=== PATIENT | male | born 1965 | race African-American/Black ===

== ENCOUNTER 2018-03-30 13:45 | Inpatient (IN) | payer OTHER ==
[2018-03-30 14:20] VITALS: BMI 30.5
[2018-03-30] MEDS ORDERED: hydrOXYzine PAMOATE 50 MG CAPSULE (FP) PO PRN (16:06)
[2018-03-30] MEDS ORDERED: guaiFENesin/D-METHORPHAN HB 10 ML UNIT-DOSE CUPS PO PRN (16:06)
[2018-03-30] MEDS ORDERED: IBUPROFEN 400 MG TABLET (FP) PO PRN (16:06)
[2018-03-30] MEDS ORDERED: MAGNESIUM CITRATE 300 ML BOTTLE PO PRN (16:06)
[2018-03-30] MEDS ORDERED: MENTHOL/PHENOL 1 EACH UD MM PRN (16:06)
[2018-03-30] MEDS ORDERED: MAG HYDROX/AL HYDROX/SIMETH 30 ML UNIT-DOSE CUP PO PRN (16:06)
[2018-03-30] MEDS ORDERED: LOPERAMIDE HCL 2 MG CAPSULE PO PRN (16:06)
[2018-03-30] MEDS ORDERED: NICOTINE POLACRILEX 2 MG GUM BC PRN (16:06)
[2018-03-30] MEDS ORDERED: MAGNESIUM HYDROX 2400MG/30ML ORAL SUSPENSION 30 ML CUP PO PRN (16:06)
[2018-03-30] MEDS ORDERED: ACETAMINOPHEN 325 MG TABLET (FP) PO PRN (16:06)
[2018-03-30] MEDS ORDERED: P-EPHED 60MG/TRIPROLIDI 2.5MG TABLET PO PRN (16:06)
[2018-03-30] MEDS ORDERED: chlordiazePOXIDE HCL 25 MG CAPSULE PO PRN (16:12)
--- NOTE | 2018-03-30 16:25 | HP ---
CIWA Score Nausea/Vomitin Muscle Tremors: None Anxiety: 3 Agitation: 3 Paroxysmal Sweats: No Perspiration Orientation: 0-Oriented Tacttile Disturbances: 1-Very Mild Itch/Numbness Auditory Disturbances: 0-None Visual Disturbances: 0-None Headache: 3-Moderate CIWA-Ar Total Score: 13 - Admission Criteria OASAS Guidelines: Admission for Medically Managed Detox: Requires at least one of the followin. CIWA greater than 12 2. Seizures within the past 24 hours 3. Delirium tremens within the past 24 hours 4. Hallucinations within the past 24 hours 5. Acute intervention needed for co occurring medical disorder 6. Acute intervention needed for co occurring psychiatric disorder 7. Severe withdrawal that cannot be handled at a lower level of care (continued vomiting, continued diarrhea, abnormal vital signs) requiring intravenous medication and/or fluids 8. Admission ROS [facility] Chief Complaint: PATIENT PRESENTS FOR ETOH WITHDRAWAL SX AND COCAINE/PCP DEPENDENCE. Allergies/Adverse Reactions: Allergies Allergy/AdvReac Type Severity Reaction Status Date / Time No Known Allergies Allergy Verified 03/30/18 16:00 History of Present Illness: THIS IS PATIENTS FIRST ADMISSION TO [facility] IN LAST YEAR FOR DETOX FROM ETOH. PATIENT STATES HE STARTED DRINKING AND SMOKING CRACK IN 1984. PATIENT DRINKS 2 40 OUNCES OF BEER AND 3 PINTS OF VODKA DIALY, SMOKES 100 DOLLARS OF COCAINE AND SMOKES PCP ONCE A MONTH. LAST TIME PATIENT USED SUBSTANCES WAS LAST NIGHT. + THC USE. PATIENT DENIES HX OF SEIZURES AND FALLS. + HX OF BINGE DRINKING, BLACKOUTS AND HAS EYE FITTER UP TO STEADY NERVES. PMH INCLUDES HIV+, HTN, HLD, BIPOLAR DISORDER AND DM. PATIENT IS NONCOMPLIANT WITH HIV MEDICATIONS HE HASN'T TAKEN MEDICATION FOR OVER ONE WEEK. ALL OTHER MEDICATIONS VERIFIED AT [facility] AND LAST FILLED 03/25/18; TRIUMEQ MEDICATION REQUIRES PA AND HAS NOT BEEN FILLED. PATIENT DENIES SI/HI AND SUICIDE ATTEMPTS. Exam Limitations: No Limitations - Ebola screening Have you traveled outside of the country in the last 21 days: No (N) Have you had contact with anyone from an Ebola affected area: No Have you been sick,other than usual withdrawal symptoms: No Do you have a fever: No - Review of Systems Constitutional: Changes in sleep EENT: reports: No Symptoms Reported Respiratory: reports: No Symptoms reported Cardiac: reports: No Symptoms Reported GI: reports: Diarrhea, Nausea, Poor Fluid Intake, Abdominal cramping : reports: Frequency (DEPENDS ON ETOH INTAKE) Musculoskeletal: reports: No Symptoms Reported Integumentary: reports: No Symptoms Reported Neuro: reports: Headache, Numbness, Tingling Endocrine: reports: No Symptoms Reported Hematology: reports: No Symptoms Reported Psychiatric: reports: Orientated x3, Anxious, Depressed Patient History - Patient Medical History Hx Anemia: No Hx Asthma: No Hx Chronic Obstructive Pulmonary Disease (COPD): No Hx Cancer: No Hx Cardiac Disorders: No Hx Congestive Heart Failure: No Hx Hypertension: Yes Hx Hypercholesterolemia: Yes Hx Pacemaker: No HX Cerebrovascular Accident: No Hx Seizures: No Hx Dementia: No Hx Diabetes: Yes Hx Gastrointestinal Disorders: No Hx Liver Disease: No Hx Genitourinary Disorders: No Hx Sexually Transmitted Disorders: No Hx Renal Disease (ESRD): No Hx Thyroid Disease: No Hx Human Immunodeficiency Virus (HIV): Yes (DIAGNOSED IN 2000) Hx Hepatitis C: No Hx Depression: Yes Hx Suicide Attempt: No Hx Bipolar Disorder: Yes Hx Schizophrenia: No - Patient Surgical History Past Surgical History: No Anesthesia Reaction: No - PPD History Previous Implant?: Yes Documented Results: Negative w/o proof Implanted On Prior [facility] Admission?: No PPD to be Administered?: Yes - Smoking Cessation Smoking history: Current every day smoker Have you smoked in the past 12 months: Yes Aproximately how many cigarettes per day: 11 Hx Chewing Tobacco Use: No Initiated information on smoking cessation: Yes 'Breaking Loose' booklet given: 03/30/18 - Substance & Tx. History Hx Alcohol Use: Yes Hx Substance Use: Yes Substance Use Type: Alcohol, Cocaine, Marijuana Hx Substance Use Treatment: Yes (2011) - Substances Abused Alcohol Route: Oral Frequency: Daily Amount used: 2 40 oz beers/ 3 pints liquor Age of first use: 16 Date of Last Use: 03/30/18 Crack Route: Smoking Frequency: Daily Amount used: $100 Age of first use: 14 Date of Last Use: 03/30/18 PCP Route: Smoking Frequency: 1-3 times last 30 days Amount used: $20 Age of first use: 16 Date of Last Use: 03/30/18 Family Disease History - Family Disease History Family History: Denies Admission Physical Exam [facility] - Vital Signs Vital Signs: Vital Signs - 24 hr 03/30/18 14:19 Temperature 98.5 F Pulse Rate 85 Respiratory 18 Rate Blood Pressure 151/96 - Physical General Appearance: Yes: Nourished, Appropriately Dressed, Anxious HEENTM: Yes: EOMI, Hearing grossly Normal, Normocephalic, Normal Voice, BART, Pharynx Normal Respiratory: Yes: Chest Non-Tender, Lungs Clear, Normal Breath Sounds, No Respiratory Distress, No Accessory Muscle Use Neck: Yes: No masses,lesions,Nodules, Supple, Trachea in good position Breast: Yes: Breast Exam Deferred Cardiology: Yes: Regular Rhythm, Regular Rate, S1, S2 Abdominal: Yes: Normal Bowel Sounds, Non Tender, Soft Genitourinary: Yes: Frequency (ETOH INTAKE DEPENDENT) Back: Yes: Normal Inspection Musculoskeletal: Yes: full range of Motion, Gait Steady Extremities: Yes: Normal Inspection, Normal Range of Motion, Non-Tender Neurological: Yes: building manager II-XII NML intact, Fully Oriented, Alert, Motor Strength 5/5, Normal Response, Numbness, Depressed Affect, Other (ANXIOUS) Integumentary: Yes: Normal Color, Dry, Warm Lymphatic: Yes: Within Normal Limits Cleared for Admission [facility] - Detox or Rehab [facility] Level of Care: Medically Managed Detox Regimen/Protocol: Librium [facility] Breath Alcohol Content Breath Alcohol Content: 0 Urine Drug Screen - Results Drug Screen Negative: No Urine Drug Screen Results: THC-Marijuana, AXEL-Cocaine
[2018-03-30] MEDS ORDERED: INSULIN (NOVOLOG) ASPART 100 UNITS/ML 10ML VIAL SQ ONE (18:00)
[2018-03-30] MEDS ORDERED: cloNIDine HCL 0.1 MG TABLET PO ONE (18:00)
[2018-03-30] MEDS ORDERED: INSULIN SLIDING SCALE (NOVOLOG) 1 VIAL SQ ONE (18:34)
[2018-03-30] MEDS: metFORMIN HCL 500 MG TABLET (FP) PO SCH (18:46)
[2018-03-30] MEDS ORDERED: MELATONIN 5 MG TABLETS PO PRN (22:00)
[2018-03-30] MEDS: THIAMINE HCL 100 MG TABLET (FP) PO SCH (22:32)
[2018-03-30] MEDS: chlordiazePOXIDE HCL 25 MG CAPSULE PO SCH (22:32)
[2018-03-30] MEDS: ATORVASTATIN CA 20 MG TABLET (FP) PO SCH (22:32)
[2018-03-30] MEDS: INSULIN SLIDING SCALE (NOVOLOG) 1 VIAL SQ SCH (22:32)
[2018-03-30 23:53] LABS: URINE APPEARANCE CLEAR; URINE BILIRUBIN NEGATIVE (<2.0 mg/dL); URINE COLOR STRAW; URINE GLUCOSE (UA) 3+ (NEGATIVE); URINE KETONE NEGATIVE (NEGATIVE); URINE LEUK ESTERASE NEGATIVE (NEGATIVE); URINE NITRITE NEGATIVE (NEGATIVE); URINE PROTEIN NEGATIVE (NEGATIVE); URINE UROBILINOGEN NEGATIVE mg/dL (0.2-1.0)
[2018-03-31] MEDS ORDERED: INSULIN SLIDING SCALE (NOVOLOG) 1 VIAL SQ ONE (06:55)
[2018-03-31] MEDS: metFORMIN HCL 500 MG TABLET (FP) PO SCH ×2 (07:50→17:05)
[2018-03-31] MEDS: chlordiazePOXIDE HCL 25 MG CAPSULE PO SCH ×4 (07:51→22:27)
[2018-03-31] MEDS: INSULIN SLIDING SCALE (NOVOLOG) 1 VIAL SQ SCH ×4 (07:51→22:27)
[2018-03-31] MEDS: NICOTINE 21 MG/24 HOURS TOPICAL PATCH TD SCH (10:37)
[2018-03-31] MEDS: ASPIRIN 81 MG CHEWABLE TABLETS PO SCH (10:37)
[2018-03-31] MEDS: PRENATAL VITAMINS W/ FOLIC ACID TABLET (FP) PO SCH (10:37)
[2018-03-31 10:43] LABS: ALBUMIN 3.7 g/dl (3.4-5.0); ALK PHOS 119 U/L (45-117); ANION GAP 11 MMOL/L (8-16); BILIRUBIN,TOTAL 0.4 mg/dL (0.2-1); BLOOD UREA NITROGEN 16 mg/dL (7-18); CALCIUM 8.9 mg/dL (8.5-10.1); CHLORIDE 100 mmol/L (98-107); CO2 24 mmol/L (21-32); CREATININE 1.2 mg/dL (0.55-1.3); POTASSIUM 4.2 mmol/L (3.5-5.1); SGOT/AST 25 U/L (15-37); SGPT/ALT 41 U/L (13-61); SODIUM 135 mmol/L (136-145); TOT PROT 8.2 g/dl (6.4-8.2)
[2018-03-31 11:08] LABS: GLUCOSE,RANDOM 394 mg/dL (74-106)
[2018-03-31 12:11] LABS: HEMATOCRIT 41.3 % (35.4-49); HEMOGLOBIN 13.5 GM/dL (11.7-16.9); MCH 22.8 pg (25.7-33.7); MCHC 32.6 g/dl (32.0-35.9); MEAN CELL VOLUME 69.9 fl (80-96); MEAN PLT VOLUME 9.6 fl (7.5-11.1); RBC 5.91 M/mm3 (4.00-5.60); RDW 17.8 % (11.9-15.9); WHITE BLOOD COUNT 4.2 K/mm3 (4.0-10.0)
--- NOTE | 2018-03-31 13:39 | CONSULT ---
[facility] Psychiatric Consult - Data Date of interview: 03/31/18 Admission source: Self-referred Identifying data: Mr Cartagena is a 52 years old single Black male, unemployed, homeless seeking detox treatment for alcohol, cocaine and phencyclidine Substance Abuse History: Reports history of alcohol, cocaine and pcp use. Refer to addiction counselor's summary for further information Medical History: Significant for HIV since 2000, hypertension, dyslipidemia, type 2 diabetes mellitus. Smokes 11 cigarettes daily Psychiatric History: Patient is uncooperative, hostile during the interview. However, he admits being disgnosed with Schizophrenia in the . Reports one previous psychiatric hospitalization at [facility] in the [place]. According to medication home list, he is prescribed Haldol 5 mg po daily and Cogentin 0.5 mg po daily. This was not verifiable by pharmacy claim. He denies current OPD care or taking psychotropic medications. He is unwilling to take these medications during this hospital course. He reports feeling depressed and sleeing poorly. He declines sleeping medication Mental Status Exam - Mental Status Exam Alert and Oriented to: Time, Place, Person Cognitive Function: Fair Patient Appearance: Disheveled Mood: Irritable Affect: Appropriate Patient Behavior: Combative, Uncooperative Speech Pattern: Clear Voice Loudness: Normal Thought Process: Intact, Goal Oriented Thought Disorder: Not Present Hallucinations: Denies Suicidal Ideation: Denies Homicidal Ideation: Denies Insight/Judgement: Poor Sleep: Poorly Appetite: Good Muscle strength/Tone: Normal Gait/Station: Normal Psychiatric Findings - Problem List ([place] 1, 2,3) (1) Schizophrenia Current Visit: Yes Status: Acute (2) Substance induced mood disorder Current Visit: Yes Status: Acute (3) Substance-induced sleep disorder Current Visit: Yes Status: Acute (4) Alcohol dependence with uncomplicated withdrawal Current Visit: Yes Status: Acute (5) Cocaine dependence Current Visit: Yes Status: Chronic Qualifiers: Substance use status: uncomplicated Qualified Code(s): F14.20 - Cocaine dependence, uncomplicated (6) Phencyclidine dependence Current Visit: Yes Status: Acute (7) Nicotine dependence Current Visit: Yes Status: Chronic (8) Diabetes 1.5, managed as type 2 Current Visit: Yes Status: Chronic (9) HIV positive Current Visit: Yes Status: Chronic (10) HTN (hypertension) Current Visit: Yes Status: Chronic Qualifiers: Hypertension type: essential hypertension Qualified Code(s): I10 - Essential (primary) hypertension (11) HLD (hyperlipidemia) Current Visit: Yes Status: Chronic - Initial Treatment Plan Initial Treatment Plan: Continue inpatient detoxification
--- NOTE | 2018-03-31 13:49 | PN ---
S CIWA - CIWA Score Nausea/Vomitin-Mild Nausea/No Vomiting Muscle Tremors: 3 Anxiety: 2 Agitation: 2 Paroxysmal Sweats: 1-Minimal Palms Moist Orientation: 1-Uncertain about Date Tacttile Disturbances: 1-Very Mild Itch/Numbness Auditory Disturbances: 0-None Visual Disturbances: 0-None Headache: 1-Very Mild CIWA-Ar Total Score: 12 BHS Progress Note (SOAP) Subjective: tremor sweating irritable agitative patient does not want to check bgm 4/day due to patient has elevated serum glucose level "I do not care" as per patient stated health teaching on negative consequences of glucose serum elevation Objective: 03/31/18 14:06 Vital Signs Temperature 98.6 F 03/31/18 13:39 Pulse Rate 82 03/31/18 13:39 Respiratory Rate 18 03/31/18 13:39 Blood Pressure 134/80 03/31/18 13:39 O2 Sat by Pulse Oximetry (%) Laboratory Last Values WBC 4.2 K/mm3 (4.0-10.0) 03/31/18 07:00 RBC 5.91 M/mm3 (4.00-5.60) H 03/31/18 07:00 Hgb 13.5 GM/dL (11.7-16.9) 03/31/18 07:00 Hct 41.3 % (35.4-49) 03/31/18 07:00 MCV 69.9 fl (80-96) L 03/31/18 07:00 MCH 22.8 pg (25.7-33.7) L 03/31/18 07:00 MCHC 32.6 g/dl (32.0-35.9) 03/31/18 07:00 RDW 17.8 % (11.9-15.9) H 03/31/18 07:00 Sodium 135 mmol/L (136-145) L 03/31/18 07:00 Potassium 4.2 mmol/L (3.5-5.1) 03/31/18 07:00 Chloride 100 mmol/L (98-107) 03/31/18 07:00 Carbon Dioxide 24 mmol/L (21-32) 03/31/18 07:00 Anion Gap 11 MMOL/L (8-16) 03/31/18 07:00 BUN 16 mg/dL (7-18) 03/31/18 07:00 Creatinine 1.2 mg/dL (0.55-1.3) 03/31/18 07:00 Creat Clearance w eGFR > 60 (>60) 03/31/18 07:00 POC Glucometer 542 UNITS (80-120) 03/31/18 06:52 Random Glucose 394 mg/dL (74-106) H* 03/31/18 07:00 Calcium 8.9 mg/dL (8.5-10.1) 03/31/18 07:00 Total Bilirubin 0.4 mg/dL (0.2-1) 03/31/18 07:00 AST 25 U/L (15-37) 03/31/18 07:00 ALT 41 U/L (13-61) 03/31/18 07:00 Alkaline Phosphatase 119 U/L (45-117) H 03/31/18 07:00 Total Protein 8.2 g/dl (6.4-8.2) 03/31/18 07:00 Albumin 3.7 g/dl (3.4-5.0) 03/31/18 07:00 Urine Color Straw 03/30/18 22:47 Urine Appearance Clear 03/30/18 22:47 Urine pH 6.0 (5.0-8.0) 03/30/18 22:47 Ur Specific [place] 1.024 (1.010-1.035) 03/30/18 22:47 Urine Protein Negative (NEGATIVE) 03/30/18 22:47 Urine Glucose (UA) 3+ (NEGATIVE) H 03/30/18 22:47 Urine Ketones Negative (NEGATIVE) 03/30/18 22:47 Urine Blood Negative (NEGATIVE) 03/30/18 22:47 Urine Nitrite Negative (NEGATIVE) 03/30/18 22:47 Urine Bilirubin Negative (<2.0 mg/dL) 03/30/18 22:47 Urine Urobilinogen Negative mg/dL (0.2-1.0) 03/30/18 22:47 Ur Leukocyte Esterase Negative (NEGATIVE) 03/30/18 22:47 lab noted Assessment: 03/31/18 14:07 withdrawal sx Plan: continue detox continue bgm 4/daily
[2018-03-31 14:17] LABS: PLATELET COUNT 110 K/MM3 (134-434)
--- NOTE | 2018-03-31 14:55 | EKG ---
Test Reason : Blood Pressure : / mmHG Vent. Rate : 080 BPM Atrial Rate : 080 BPM P-R Int : 158 ms QRS Dur : 096 ms QT Int : 378 ms P-R-T Axes : 060 017 009 degrees QTc Int : 435 ms NORMAL SINUS RHYTHM MODERATE VOLTAGE CRITERIA FOR LVH, MAY BE NORMAL VARIANT BORDERLINE ECG NO PREVIOUS ECGS AVAILABLE Confirmed by MARTHA COYNE MD ([id number]) on 03/31/2018 2:55:05 PM Referred By: Confirmed By:MARTHA COYNE MD
[2018-03-31] MEDS: ATORVASTATIN CA 20 MG TABLET (FP) PO SCH (22:27)
[2018-03-31] MEDS: THIAMINE HCL 100 MG TABLET (FP) PO SCH (22:27)
[2018-04-01] MEDS: metFORMIN HCL 500 MG TABLET (FP) PO SCH ×2 (06:14→17:47)
[2018-04-01] MEDS: chlordiazePOXIDE HCL 25 MG CAPSULE PO SCH ×3 (06:14→17:47)
[2018-04-01] MEDS: INSULIN SLIDING SCALE (NOVOLOG) 1 VIAL SQ SCH ×4 (08:08→21:41)
--- NOTE | 2018-04-01 10:19 | PN ---
S CIWA - CIWA Score Nausea/Vomitin-No Nausea/No Vomiting Muscle Tremors: 2 Anxiety: 2 Agitation: 3 Paroxysmal Sweats: 1-Minimal Palms Moist Orientation: 0-Oriented Tacttile Disturbances: 0-None Auditory Disturbances: 0-None Visual Disturbances: 0-None Headache: 1-Very Mild CIWA-Ar Total Score: 9 S Progress Note (SOAP) Subjective: irritable agitative tremor sweating Objective: 04/01/18 10:19 Vital Signs Temperature 96.2 F L 04/01/18 09:18 Pulse Rate 96 H 04/01/18 09:18 Respiratory Rate 18 04/01/18 09:18 Blood Pressure 129/84 04/01/18 09:18 O2 Sat by Pulse Oximetry (%) Laboratory Last Values WBC 4.2 K/mm3 (4.0-10.0) 03/31/18 07:00 RBC 5.91 M/mm3 (4.00-5.60) H 03/31/18 07:00 Hgb 13.5 GM/dL (11.7-16.9) 03/31/18 07:00 Hct 41.3 % (35.4-49) 03/31/18 07:00 MCV 69.9 fl (80-96) L 03/31/18 07:00 MCH 22.8 pg (25.7-33.7) L 03/31/18 07:00 MCHC 32.6 g/dl (32.0-35.9) 03/31/18 07:00 RDW 17.8 % (11.9-15.9) H 03/31/18 07:00 Plt Count 110 K/MM3 (134-434) L 03/31/18 07:00 MPV 9.6 fl (7.5-11.1) 03/31/18 07:00 Manual Slide Review 03/31/18 07:00 Platelet Comment Large platelets 03/31/18 07:00 Sodium 135 mmol/L (136-145) L 03/31/18 07:00 Potassium 4.2 mmol/L (3.5-5.1) 03/31/18 07:00 Chloride 100 mmol/L (98-107) 03/31/18 07:00 Carbon Dioxide 24 mmol/L (21-32) 03/31/18 07:00 Anion Gap 11 MMOL/L (8-16) 03/31/18 07:00 BUN 16 mg/dL (7-18) 03/31/18 07:00 Creatinine 1.2 mg/dL (0.55-1.3) 03/31/18 07:00 Creat Clearance w eGFR > 60 (>60) 03/31/18 07:00 POC Glucometer 551 UNITS (80-120) 04/01/18 07:56 Random Glucose 394 mg/dL (74-106) H* 03/31/18 07:00 Calcium 8.9 mg/dL (8.5-10.1) 03/31/18 07:00 Total Bilirubin 0.4 mg/dL (0.2-1) 03/31/18 07:00 AST 25 U/L (15-37) 03/31/18 07:00 ALT 41 U/L (13-61) 03/31/18 07:00 Alkaline Phosphatase 119 U/L (45-117) H 03/31/18 07:00 Total Protein 8.2 g/dl (6.4-8.2) 03/31/18 07:00 Albumin 3.7 g/dl (3.4-5.0) 03/31/18 07:00 Urine Color Straw 03/30/18 22:47 Urine Appearance Clear 03/30/18 22:47 Urine pH 6.0 (5.0-8.0) 03/30/18 22:47 Ur Specific [place] 1.024 (1.010-1.035) 03/30/18 22:47 Urine Protein Negative (NEGATIVE) 03/30/18 22:47 Urine Glucose (UA) 3+ (NEGATIVE) H 03/30/18 22:47 Urine Ketones Negative (NEGATIVE) 03/30/18 22:47 Urine Blood Negative (NEGATIVE) 03/30/18 22:47 Urine Nitrite Negative (NEGATIVE) 03/30/18 22:47 Urine Bilirubin Negative (<2.0 mg/dL) 03/30/18 22:47 Urine Urobilinogen Negative mg/dL (0.2-1.0) 03/30/18 22:47 Ur Leukocyte Esterase Negative (NEGATIVE) 03/30/18 22:47 RPR Titer Nonreactive (NONREACTIVE) 03/31/18 07:00 lab noted discontinue motrin 04/01/18 10:21 Assessment: 04/01/18 10:22 withdrawal sx diabetes uncontrolled Plan: continue detox insulin coverage 4/day
[2018-04-01] MEDS: ASPIRIN 81 MG CHEWABLE TABLETS PO SCH (10:35)
[2018-04-01] MEDS: NICOTINE 21 MG/24 HOURS TOPICAL PATCH TD SCH (10:35)
[2018-04-01] MEDS: PRENATAL VITAMINS W/ FOLIC ACID TABLET (FP) PO SCH (10:35)
[2018-04-01] MEDS: ATORVASTATIN CA 20 MG TABLET (FP) PO SCH (21:39)
[2018-04-01] MEDS: THIAMINE HCL 100 MG TABLET (FP) PO SCH (21:41)
[2018-04-01] MEDS: chlordiazePOXIDE 5 MG CAPSULE PO SCH (22:17)
[2018-04-02] MEDS ORDERED: INSULIN SLIDING SCALE (NOVOLOG) 1 VIAL SQ ONE (07:10)
[2018-04-02] MEDS: chlordiazePOXIDE 5 MG CAPSULE PO SCH ×2 (08:07→10:10)
[2018-04-02] MEDS: metFORMIN HCL 500 MG TABLET (FP) PO SCH (08:07)
[2018-04-02] MEDS: INSULIN SLIDING SCALE (NOVOLOG) 1 VIAL SQ SCH ×2 (08:08→11:28)
[2018-04-02] MEDS: PRENATAL VITAMINS W/ FOLIC ACID TABLET (FP) PO SCH (10:10)
[2018-04-02] MEDS: ASPIRIN 81 MG CHEWABLE TABLETS PO SCH (10:10)
[2018-04-02] MEDS: NICOTINE 21 MG/24 HOURS TOPICAL PATCH TD SCH (10:12)
--- NOTE | 2018-04-02 10:29 | PN ---
BHS Progress Note (SOAP) Subjective: feeling better , wants to go to rehab. Objective: 04/02/18 10:28 Vital Signs Temperature 98.3 F 04/01/18 17:37 Pulse Rate 87 04/01/18 17:37 Respiratory Rate 18 04/02/18 00:30 Blood Pressure 126/84 04/01/18 17:37 O2 Sat by Pulse Oximetry (%) Laboratory Tests 03/30/18 03/30/18 03/30/18 16:31 18:41 21:20 WBC RBC Hgb Hct MCV MCH MCHC RDW Plt Count MPV Manual Slide Review Platelet Comment Sodium Potassium Chloride Carbon Dioxide Anion Gap BUN Creatinine Creat Clearance w eGFR POC Glucometer 484 568 581 Random Glucose Calcium Total Bilirubin AST ALT Alkaline Phosphatase Total Protein Albumin Urine Color Urine Appearance Urine pH Ur Specific [place] Urine Protein Urine Glucose (UA) Urine Ketones Urine Blood Urine Nitrite Urine Bilirubin Urine Urobilinogen Ur Leukocyte Esterase RPR Titer 03/30/18 03/31/18 03/31/18 22:47 06:52 07:00 WBC 4.2 RBC 5.91 H Hgb 13.5 Hct 41.3 MCV 69.9 L MCH 22.8 L MCHC 32.6 RDW 17.8 H Plt Count 110 L MPV 9.6 Manual Slide Review Platelet Comment Large platelets Sodium Potassium Chloride Carbon Dioxide Anion Gap BUN Creatinine Creat Clearance w eGFR POC Glucometer 542 Random Glucose Calcium Total Bilirubin AST ALT Alkaline Phosphatase Total Protein Albumin Urine Color Straw Urine Appearance Clear Urine pH 6.0 Ur Specific [place] 1.024 Urine Protein Negative Urine Glucose (UA) 3+ H Urine Ketones Negative Urine Blood Negative Urine Nitrite Negative Urine Bilirubin Negative Urine Urobilinogen Negative Ur Leukocyte Esterase Negative RPR Titer 03/31/18 03/31/18 03/31/18 07:00 07:00 16:23 WBC RBC Hgb Hct MCV MCH MCHC RDW Plt Count MPV Manual Slide Review Platelet Comment Sodium 135 L Potassium 4.2 Chloride 100 Carbon Dioxide 24 Anion Gap 11 BUN 16 Creatinine 1.2 Creat Clearance w eGFR > 60 POC Glucometer 436 Random Glucose 394 H* Calcium 8.9 Total Bilirubin 0.4 AST 25 ALT 41 Alkaline Phosphatase 119 H Total Protein 8.2 Albumin 3.7 Urine Color Urine Appearance Urine pH Ur Specific [place] Urine Protein Urine Glucose (UA) Urine Ketones Urine Blood Urine Nitrite Urine Bilirubin Urine Urobilinogen Ur Leukocyte Esterase RPR Titer Nonreactive 04/01/18 04/02/18 07:56 07:07 WBC RBC Hgb Hct MCV MCH MCHC RDW Plt Count MPV Manual Slide Review Platelet Comment Sodium Potassium Chloride Carbon Dioxide Anion Gap BUN Creatinine Creat Clearance w eGFR POC Glucometer 551 584 Random Glucose Calcium Total Bilirubin AST ALT Alkaline Phosphatase Total Protein Albumin Urine Color Urine Appearance Urine pH Ur Specific [place] Urine Protein Urine Glucose (UA) Urine Ketones Urine Blood Urine Nitrite Urine Bilirubin Urine Urobilinogen Ur Leukocyte Esterase RPR Titer pt aox3 in nad ambulating 04/02/18 10:44 Assessment: 04/02/18 10:44 chronic alcoholism uncontrolled dm Plan: d/c to rehab metformin 1000mg bid insulin coverage increase fluids bgm's
--- NOTE | 2018-04-02 11:31 | DS ---
[facility] Detox Discharge Summary Admission Date: 03/30/18 Discharge Date: 04/02/18 - History Present History: Alcohol Dependence, Cannabis Dependence, Cocaine Dependence - Physical Exam Results Vital Signs: Vital Signs Temperature 98.3 F 04/01/18 17:37 Pulse Rate 87 04/01/18 17:37 Respiratory Rate 18 04/02/18 00:30 Blood Pressure 126/84 04/01/18 17:37 O2 Sat by Pulse Oximetry (%) - Treatment Hospital Course: Detox Protocol Followed, Detoxed Safely, Responded well, Rehab Referral Accepted Patient has Accepted a Rehab Referral to: [facility] - Medication Discharge Medications: Ambulatory Orders Abacavir/Dolutegravir/Lamivudi [Triumeq Tablet] 1 each PO DAILY 03/30/18 Aspirin [ASA -] 81 mg PO DAILY 03/30/18 Benztropine Mesylate [Cogentin -] 0.5 mg PO DAILY 03/30/18 Haloperidol [Haldol -] 5 mg PO DAILY 03/30/18 Metformin HCl [Glucophage] 500 mg PO BID 03/30/18 Simvastatin [Zocor] 10 mg PO HS 03/30/18 - Diagnosis (1) Alcohol dependence with uncomplicated withdrawal Current Visit: Yes Status: Chronic (2) Schizophrenia Current Visit: Yes Status: Chronic (3) Bipolar disorder Current Visit: Yes Status: Chronic (4) Cocaine dependence Current Visit: Yes Status: Chronic Qualifiers: (5) Diabetes 1.5, managed as type 2 Current Visit: Yes Status: Chronic (6) HIV positive Current Visit: Yes Status: Chronic (7) HLD (hyperlipidemia) Current Visit: Yes Status: Chronic (8) HTN (hypertension) Current Visit: Yes Status: Chronic Qualifiers: (9) Nicotine dependence Current Visit: Yes Status: Chronic
--- NOTE | 2018-04-02 11:46 | HP ---
[facility] Rehab Assess/Revision - Admission History Admitted to Rehab [facility]: [facility] - Vital signs Vital Signs: Vital Signs Period Temp Pulse Resp BP Sys/Ramos Pulse Ox Last 24 Hr 96.0 F-98.3 F 87-96 18-20 126-129/84-85 - Findings Detox History & Physical reviewed: Yes Concur with findings: Yes
--- NOTE | 2018-04-02 11:47 | HP ---
[facility] Rehab Assess/Revision - Vital signs Vital Signs: Vital Signs Period Temp Pulse Resp BP Sys/Ramos Pulse Ox Last 24 Hr 96.0 F-98.3 F 87-96 18-20 126-129/84-85 Inpatient Rehab Admission - Initial Determination Are CD services needed?: Yes Free of communicable disease: Yes Not in need of hospitalization: Yes - Rehab Admission Criteria Previous failed treatment: Yes Poor recovery environment: Yes Comorbidities: Yes Lacks judgement: Yes Patient is meeting Inpatient Rehab admission criteria:: Yes
[2018-04-02 13:16] VITALS: BP 126/79; PULSE 92; TEMP 99.4
[2018-04-02] MEDS ORDERED: metFORMIN HCL 500 MG TABLET (FP) PO SCH (16:30)
[2018-04-02] MEDS ORDERED: chlordiazePOXIDE HCL 10 MG CAPSULE PO SCH (23:00)
== END 2018-04-02 13:46 | disposition other institution (70) | DRG 774 ==
LOC: YASAS 13:45 → MERGE 17:51 → Y3N 17:51
PROVIDERS: ADMIT Neuromusculoskeletal Medicine & OMM; ATTEND Neuromusculoskeletal Medicine & OMM
PROC: HZ2ZZZZ Detoxification Services for Substance Abuse Treatment (ICD-10-PCS; principal; 2018-03-30)
DX: F10.230 Alcohol dependence with withdrawal, uncomplicated (principal); F14.20 Cocaine dependence, uncomplicated; F16.20 Hallucinogen dependence, uncomplicated; F12.20 Cannabis dependence, uncomplicated; F17.210 Nicotine dependence, cigarettes, uncomplicated; F20.9 Schizophrenia, unspecified; F31.9 Bipolar disorder, unspecified; I10 Essential (primary) hypertension; B20 Human immunodeficiency virus [HIV] disease; E78.5 Hyperlipidemia, unspecified; Z59.0 Homelessness
CPT/HCPCS: 36415; 80053; 81003; 82962; 85027; 86593; 93005; 93010; J0735

== ENCOUNTER 2018-04-02 13:55 | Inpatient (IN) | payer OTHER ==
--- NOTE | 2018-04-02 10:52 | HP ---
[facility] Rehab Assess/Revision - Admission History Admitted to Rehab from: [address] Inpatient Rehab Admission - Initial Determination Are CD services needed?: Yes Free of communicable disease: Yes Not in need of hospitalization: Yes - Rehab Admission Criteria Previous failed treatment: Yes Poor recovery environment: Yes Comorbidities: Yes Lacks judgement: Yes Patient is meeting Inpatient Rehab admission criteria:: Yes
--- NOTE | 2018-04-02 10:54 | HP ---
[facility] Rehab Assess/Revision - Admission History Admitted to Rehab [facility]: [facility] Date of Admission to Rehab: 04/02/2018 - Findings Detox History & Physical reviewed: Yes Concur with findings: Yes Comments/Additional Findings: Pt requires close monitoring of DM.
--- NOTE | 2018-04-02 11:01 | DS ---
[facility] Detox Discharge Summary Discharge Date: 04/02/18 - History Present History: Alcohol Dependence, Cannabis Dependence, Cocaine Dependence, Pcp Dependence - Treatment Hospital Course: Detox Protocol Followed, Detoxed Safely, Responded well, Discharged Condition Good - Medication Discharge Medications: Ambulatory Orders Emtricitabine/Tenofovir [Truvada] 1 tab PO DAILY 11/04/11 Ritonavir [Norvir] 100 mg PO 11/04/11 Sulfamethoxazole/Trimethoprim [Bactrim *Ds*] 1 tab PO DAILY 11/04/11 Darunavir Ethanolate [Prezista] 600 mg PO DAILY 11/12/12 Abacavir/Dolutegravir/Lamivudi [Triumeq Tablet] 1 each PO DAILY 03/30/18 Aspirin [ASA -] 81 mg PO DAILY 03/30/18 Benztropine Mesylate [Cogentin -] 0.5 mg PO DAILY 03/30/18 Haloperidol [Haldol -] 5 mg PO DAILY 03/30/18 Metformin HCl [Glucophage] 500 mg PO BID 03/30/18 Simvastatin [Zocor] 10 mg PO HS 03/30/18 - Diagnosis (1) Alcohol dependence with uncomplicated withdrawal Status: Acute (2) Phencyclidine dependence Status: Acute (3) Substance induced mood disorder Status: Acute (4) Bipolar disorder Status: Chronic (5) Cocaine dependence Status: Chronic Qualifiers: (6) Diabetes 1.5, managed as type 2 Status: Chronic (7) HIV positive Status: Chronic (8) HLD (hyperlipidemia) Status: Chronic (9) HTN (hypertension) Status: Chronic Qualifiers: - AMA Did Patient Leave Against Medical Advice: No
[~2018-04-02 13:55] MED LIST: ACETAMINOPHEN 325 MG TABLET (FP) PO PRN; IBUPROFEN 400 MG TABLET (FP) PO PRN; LOPERAMIDE HCL 2 MG CAPSULE PO PRN; MAG HYDROX/AL HYDROX/SIMETH 30 ML UNIT-DOSE CUP PO PRN; MAGNESIUM CITRATE 300 ML BOTTLE PO PRN; MAGNESIUM HYDROX 2400MG/30ML ORAL SUSPENSION 30 ML CUP PO PRN; MENTHOL/PHENOL 1 EACH UD MM PRN; NICOTINE POLACRILEX 4 MG GUM BUC PRN; P-EPHED 60MG/TRIPROLIDI 2.5MG TABLET PO PRN; guaiFENesin/D-METHORPHAN HB 10 ML UNIT-DOSE CUPS PO PRN
[2018-04-02] MEDS ORDERED: NICOTINE POLACRILEX 2 MG GUM BUC PRN (14:50)
[2018-04-02] MEDS ORDERED: metFORMIN HCL 500 MG TABLET (FP) PO SCH ×2 (16:30→22:00)
[2018-04-02] MEDS: metFORMIN HCL 500 MG TABLET (FP) PO SCH (17:33)
[2018-04-02] MEDS: INSULIN SLIDING SCALE (NOVOLOG) 1 VIAL SQ SCH ×2 (17:33→21:20)
[2018-04-02] MEDS: THIAMINE HCL 100 MG TABLET (FP) PO SCH (21:20)
[2018-04-02] MEDS ORDERED: INSULIN SLIDING SCALE (NOVOLOG) 1 VIAL SQ SCH (22:00)
[2018-04-03] MEDS ORDERED: metFORMIN HCL 500 MG TABLET (FP) PO SCH ×2 (07:00→17:30)
[2018-04-03] MEDS: metFORMIN HCL 500 MG TABLET (FP) PO SCH ×2 (07:05→16:48)
[2018-04-03] MEDS ORDERED: INSULIN (NOVOLOG) ASPART 100 UNITS/ML 10ML VIAL ONE ×3 (07:06→16:29)
[2018-04-03] MEDS: INSULIN SLIDING SCALE (NOVOLOG) 1 VIAL SQ SCH ×4 (07:14→21:12)
[2018-04-03] MEDS ORDERED: NICOTINE 21 MG/24 HOURS TOPICAL PATCH TD SCH (10:00)
[2018-04-03] MEDS: PRENATAL VITAMINS W/ FOLIC ACID TABLET (FP) PO SCH (10:01)
[2018-04-03] MEDS: ASPIRIN 81 MG CHEWABLE TABLETS PO SCH (10:01)
[2018-04-03] MEDS: NICOTINE 7 MG/24 HOURS TOPICAL PATCH TD SCH (10:02)
--- NOTE | 2018-04-03 16:58 | CONSULT ---
[facility] Psychiatric Consult - Data Date of interview: 04/03/18 Admission source: Transfer from detox unit. Identifying data: Came to evaluate this patient referred for psychiatric consult. Met with the patient. Mr Cartagena states that he has " nothing to discuss with psychiatrists ". Patient admits to being diagnosed with Schizophrenia but declines to resume haldol and cogentin. " I have not taken these things for a while. I am not on the psychiatric lobo. I will not take them ". Declines to reconsider. Patient is asymptomatic. Currently at his baseline. Psychiatric interview rejected by patient.
--- NOTE | 2018-04-03 17:47 | PN ---
S Progress Note Note: bgm is high,non compliance,on insulin coverage, will continue bgm achs ad levimir 20 units hs fasting blood glucose in am close monitoring
[2018-04-03] MEDS: THIAMINE HCL 100 MG TABLET (FP) PO SCH (21:08)
[2018-04-03] MEDS: MELATONIN 5 MG TABLETS PO PRN (21:12)
[2018-04-03] MEDS: INSULIN (LEVEMIR) 100 UNITS/ML UNITS SQ SCH (21:13)
[2018-04-04] MEDS: metFORMIN HCL 500 MG TABLET (FP) PO SCH ×2 (07:00→16:38)
[2018-04-04] MEDS ORDERED: INSULIN (NOVOLOG) ASPART 100 UNITS/ML 10ML VIAL ONE (07:02)
[2018-04-04] MEDS: INSULIN SLIDING SCALE (NOVOLOG) 1 VIAL SQ SCH ×4 (07:04→21:10)
[2018-04-04] MEDS: NICOTINE 7 MG/24 HOURS TOPICAL PATCH TD SCH (10:14)
[2018-04-04] MEDS: ASPIRIN 81 MG CHEWABLE TABLETS PO SCH (10:14)
[2018-04-04] MEDS: PRENATAL VITAMINS W/ FOLIC ACID TABLET (FP) PO SCH (10:15)
--- NOTE | 2018-04-04 17:07 | PN ---
S Progress Note Note: patient with uncontrolled diabetes mellitus,on metformin 500 mgs po bid,insulin sliding scale and levimir 20 unit at night bgm fluctuating requesting dietitician evaluation,continue bgm evaluation with insulin coverage
[2018-04-04] MEDS: THIAMINE HCL 100 MG TABLET (FP) PO SCH (21:09)
[2018-04-04] MEDS: INSULIN (LEVEMIR) 100 UNITS/ML UNITS SQ SCH (21:11)
[2018-04-04] MEDS: MELATONIN 5 MG TABLETS PO PRN (21:43)
[2018-04-05] MEDS: metFORMIN HCL 500 MG TABLET (FP) PO SCH ×2 (07:26→16:44)
[2018-04-05] MEDS: INSULIN SLIDING SCALE (NOVOLOG) 1 VIAL SQ SCH ×4 (07:31→22:46)
[2018-04-05] MEDS ORDERED: INSULIN (NOVOLOG) ASPART 100 UNITS/ML 10ML VIAL ONE ×4 (07:32→22:59)
[2018-04-05] MEDS: NICOTINE 7 MG/24 HOURS TOPICAL PATCH TD SCH (10:22)
[2018-04-05] MEDS: ASPIRIN 81 MG CHEWABLE TABLETS PO SCH (10:22)
[2018-04-05] MEDS: PRENATAL VITAMINS W/ FOLIC ACID TABLET (FP) PO SCH (10:22)
[2018-04-05] MEDS: MELATONIN 5 MG TABLETS PO PRN (21:59)
[2018-04-05] MEDS: THIAMINE HCL 100 MG TABLET (FP) PO SCH (21:59)
[2018-04-05] MEDS: INSULIN (LEVEMIR) 100 UNITS/ML UNITS SQ SCH (22:45)
[2018-04-06] MEDS: metFORMIN HCL 500 MG TABLET (FP) PO SCH ×2 (06:43→16:44)
[2018-04-06] MEDS ORDERED: INSULIN (NOVOLOG) ASPART 100 UNITS/ML 10ML VIAL ONE ×3 (06:46→16:45)
[2018-04-06] MEDS: INSULIN SLIDING SCALE (NOVOLOG) 1 VIAL SQ SCH ×4 (07:02→22:27)
[2018-04-06] MEDS: PRENATAL VITAMINS W/ FOLIC ACID TABLET (FP) PO SCH (10:28)
[2018-04-06] MEDS: ASPIRIN 81 MG CHEWABLE TABLETS PO SCH (10:28)
[2018-04-06] MEDS: NICOTINE 7 MG/24 HOURS TOPICAL PATCH TD SCH (10:28)
[2018-04-06] MEDS: THIAMINE HCL 100 MG TABLET (FP) PO SCH (22:27)
[2018-04-06] MEDS: INSULIN (LEVEMIR) 100 UNITS/ML UNITS SQ SCH (22:29)
[2018-04-06] MEDS: MELATONIN 5 MG TABLETS PO PRN (22:34)
[2018-04-07] MEDS: metFORMIN HCL 500 MG TABLET (FP) PO SCH ×2 (06:38→16:48)
[2018-04-07] MEDS: INSULIN SLIDING SCALE (NOVOLOG) 1 VIAL SQ SCH ×4 (07:27→22:17)
[2018-04-07] MEDS: PRENATAL VITAMINS W/ FOLIC ACID TABLET (FP) PO SCH (09:50)
[2018-04-07] MEDS: NICOTINE 7 MG/24 HOURS TOPICAL PATCH TD SCH (09:50)
[2018-04-07] MEDS: ASPIRIN 81 MG CHEWABLE TABLETS PO SCH (09:50)
[2018-04-07] MEDS ORDERED: INSULIN (NOVOLOG) ASPART 100 UNITS/ML 10ML VIAL ONE (16:17)
--- NOTE | 2018-04-07 20:01 | PN ---
S Progress Note Note: Informed by Nurse that patient stated he had cuts/sores on penis. Patient refused to allow provider to look at penis. Patient states "I'll take care of it myself." Explained that there could be health concerns that need to be addressed but patient continues to refuse examination.
[2018-04-07] MEDS: THIAMINE HCL 100 MG TABLET (FP) PO SCH (22:13)
[2018-04-07] MEDS: MELATONIN 5 MG TABLETS PO PRN (22:13)
[2018-04-07] MEDS: INSULIN (LEVEMIR) 100 UNITS/ML UNITS SQ SCH (22:15)
[2018-04-08] MEDS: metFORMIN HCL 500 MG TABLET (FP) PO SCH ×2 (06:58→16:44)
[2018-04-08] MEDS: INSULIN SLIDING SCALE (NOVOLOG) 1 VIAL SQ SCH ×4 (07:00→21:16)
[2018-04-08] MEDS: NICOTINE 7 MG/24 HOURS TOPICAL PATCH TD SCH (10:19)
[2018-04-08] MEDS: PRENATAL VITAMINS W/ FOLIC ACID TABLET (FP) PO SCH (10:19)
[2018-04-08] MEDS: ASPIRIN 81 MG CHEWABLE TABLETS PO SCH (10:19)
[2018-04-08] MEDS ORDERED: INSULIN (NOVOLOG) ASPART 100 UNITS/ML 10ML VIAL ONE ×2 (11:55→17:50)
--- NOTE | 2018-04-08 12:31 | PN ---
[facility] Progress Note Note: PT COMPLETED REHAB AND SCHEDULED FOR DISCHARGE IN THE MORNING. PT WAS REFERRED TO [facility] CD PROGRAM AND WILL FOLLOW UP AT [facility] FOR MEDICAL MANAGEMENT. 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 Vital Signs - 24 hr 04/08/18 04/08/18 04/08/18 00:30 03:30 06:34 Temperature 97.8 F Pulse Rate 54 L Respiratory 18 18 17 Rate Blood Pressure 140/84 Laboratory Tests 04/02/18 04/02/18 04/03/18 16:39 21:17 07:03 POC Glucometer 412 583 337 04/03/18 04/03/18 04/03/18 11:45 16:39 21:07 POC Glucometer 433 > 600 407 04/03/18 04/04/18 04/04/18 23:18 06:58 16:36 POC Glucometer 159 312 440 04/04/18 04/05/18 04/05/18 21:10 07:25 11:45 POC Glucometer 354 435 329 04/05/18 04/05/18 04/06/18 16:42 21:56 06:42 POC Glucometer 541 399 350 04/06/18 04/06/18 04/06/18 12:27 16:42 22:27 POC Glucometer 443 456 357 04/07/18 04/07/18 04/07/18 06:37 11:48 16:46 POC Glucometer 175 402 407 04/07/18 04/08/18 04/08/18 22:13 06:56 11:53 POC Glucometer 208 298 352 NAD PLAN;FOLLOW UP WITH [facility] FOR CD AND MEDICAL MANAGEMENT RECOMMENDED.
[2018-04-08] MEDS: INSULIN (LEVEMIR) 100 UNITS/ML UNITS SQ SCH (21:17)
[2018-04-08] MEDS: THIAMINE HCL 100 MG TABLET (FP) PO SCH (21:18)
[2018-04-08] MEDS ORDERED: CLOTRIMAZOLE 1% CREAM 15 GM TUBE TP SCH (22:00)
[2018-04-08] MEDS ORDERED: BACITRACIN 0.9 GM PACKET TP SCH (22:00)
[2018-04-08] MEDS: MELATONIN 5 MG TABLETS PO PRN (23:26)
[2018-04-09] MEDS: metFORMIN HCL 500 MG TABLET (FP) PO SCH (06:03)
[2018-04-09] MEDS: INSULIN SLIDING SCALE (NOVOLOG) 1 VIAL SQ SCH (06:11)
[2018-04-09] MEDS ORDERED: INSULIN (NOVOLOG) ASPART 100 UNITS/ML 10ML VIAL ONE (06:35)
[2018-04-09 06:38] VITALS: BP 152/89; PULSE 64; TEMP 98.5
== END 2018-04-09 07:10 | disposition home or self-care (01) | DRG 772 ==
LOC: YASAS 13:55 → Y5N 13:56
PROVIDERS: ADMIT Psychiatry & Neurology Psychiatry; ATTEND Psychiatry & Neurology Psychiatry
PROC: HZ42ZZZ Group Counseling for Substance Abuse Treatment, Cognitive-Behavioral (ICD-10-PCS; principal; 2018-04-02)
DX: F10.20 Alcohol dependence, uncomplicated (principal); F16.20 Hallucinogen dependence, uncomplicated; F14.20 Cocaine dependence, uncomplicated; F19.24 Other psychoactive substance dependence with psychoactive substance-induced mood disorder; F31.9 Bipolar disorder, unspecified; E11.65 Type 2 diabetes mellitus with hyperglycemia; B20 Human immunodeficiency virus [HIV] disease; E78.5 Hyperlipidemia, unspecified; I10 Essential (primary) hypertension; Z79.84 Long term (current) use of oral hypoglycemic drugs; Z79.4 Long term (current) use of insulin; Z91.14 Patient's other noncompliance with medication regimen
CPT/HCPCS: 71046-TC-FY; 82962

== ENCOUNTER 2018-07-04 09:01 | Inpatient (IN) | payer OTHER ==
[2018-07-04 09:53] VITALS: BMI 31.6
--- NOTE | 2018-07-04 11:16 | HP ---
CIWA Score Nausea/Vomitin-No Nausea/No Vomiting Muscle Tremors: 2 Anxiety: 3 Agitation: 3 Paroxysmal Sweats: 2 Orientation: 0-Oriented Tacttile Disturbances: 0-None Auditory Disturbances: 0-None Visual Disturbances: 0-None Headache: 0-None Present CIWA-Ar Total Score: 10 - Admission Criteria OASAS Guidelines: Admission for Medically Managed Detox: Requires at least one of the followin. CIWA greater than 12 2. Seizures within the past 24 hours 3. Delirium tremens within the past 24 hours 4. Hallucinations within the past 24 hours 5. Acute intervention needed for co occurring medical disorder 6. Acute intervention needed for co occurring psychiatric disorder 7. Severe withdrawal that cannot be handled at a lower level of care (continued vomiting, continued diarrhea, abnormal vital signs) requiring intravenous medication and/or fluids 8. Patient presents the following: Acute intervention needed for co-occurring med or psych disorder Admission Criteria Met: Admission criteria met Admission ROS BHS - HPI Chief Complaint: I need detox Allergies/Adverse Reactions: Allergies Allergy/AdvReac Type Severity Reaction Status Date / Time No Known Allergies Allergy Verified 07/04/18 09:42 History of Present Illness: 52 y/o male presents for detox, known to this program with last visit in April. Pt was referred here today from [facility] where he went yesterday for alcohol related complaint. He denies alcohol related seizures or blackouts, denies past or current SI/HI. Hx - HIV, DM, Depression; admits he is not complaint with any of his meds. Exam Limitations: No Limitations - Ebola screening Have you traveled outside of the country in the last 21 days: No Have you had contact with anyone from an Ebola affected area: No Have you been sick,other than usual withdrawal symptoms: No Do you have a fever: No - Review of Systems Constitutional: No Symptoms Reported EENT: reports: Dental Problems (missing front teeth) Respiratory: reports: No Symptoms reported Cardiac: reports: No Symptoms Reported GI: reports: No Symptoms Reported : reports: No Symptoms Reported Musculoskeletal: reports: No Symptoms Reported Integumentary: reports: No Symptoms Reported Neuro: reports: No Symptoms reported Endocrine: reports: No Symptoms Reported Hematology: reports: No Symptoms Reported Psychiatric: reports: other (mood labile, irritable) Other Systems: Reviewed and Negative Patient History - Patient Medical History Hx Anemia: No Hx Asthma: No Hx Chronic Obstructive Pulmonary Disease (COPD): No Hx Cancer: No Hx Cardiac Disorders: No Hx Congestive Heart Failure: No Hx Hypertension: Yes Hx Hypercholesterolemia: Yes Hx Pacemaker: No HX Cerebrovascular Accident: No Hx Seizures: No Hx Dementia: No Hx Diabetes: Yes (Not compliant with Meds) Hx Gastrointestinal Disorders: No Hx Liver Disease: No Hx Genitourinary Disorders: No Hx Sexually Transmitted Disorders: No Hx Renal Disease (ESRD): No Hx Thyroid Disease: No Hx Human Immunodeficiency Virus (HIV): Yes (DIAGNOSED IN 200, not compliant with medication) Hx Hepatitis C: No Hx Depression: No Hx Suicide Attempt: No Hx Bipolar Disorder: Yes Hx Schizophrenia: No - Patient Surgical History Past Surgical History: No Hx Neurologic Surgery: No Hx Cataract Extraction: No Hx Cardiac Surgery: No Hx Lung Surgery: No Hx Breast Surgery: No Hx Breast Biopsy: No Hx Abdominal Surgery: No Hx Appendectomy: No Hx Cholecystectomy: No Hx Genitourinary Surgery: No Hx Section: No Hx Orthopedic Surgery: No Anesthesia Reaction: No - PPD History Documented Results: Positive w/proof (CXR - 04/06/2018) PPD to be Administered?: No - Reproductive History Patient is a Female of Child Bearing Age (11 -55 yrs old): No - Smoking Cessation Smoking history: Never smoked Have you smoked in the past 12 months: No Aproximately how many cigarettes per day: 0 Hx Chewing Tobacco Use: No - Substance & Tx. History Hx Alcohol Use: Yes Hx Substance Use: Yes Substance Use Type: Alcohol, Cocaine, Marijuana (marijuana tablets) Hx Substance Use Treatment: Yes - Substances abused Alcohol Substance route: Oral Frequency: Daily Amount used: 2 bottles of 40 ounces of beer, i/5 of liquor Age of first use: 16 Date of last use: 07/03/18 Crack Substance route: Smoking Frequency: 1-2 times per week Amount used: $5 Age of first use: 50 Date of last use: 07/01/18 Family Disease History - Family Disease History Family History: Unremarkable Admission Physical Exam BHS - Vital Signs Vital Signs: Vital Signs - 24 hr 07/04/18 09:46 Temperature 97.1 F L Pulse Rate 56 L Respiratory 18 Rate Blood Pressure 144/85 - Physical General Appearance: Yes: Mild Distress HEENTM: Yes: EOMI, Normal ENT Inspection, Normal Voice Respiratory: Yes: Lungs Clear, Normal Breath Sounds, No Respiratory Distress Neck: Yes: No masses,lesions,Nodules, Trachea in good position Breast: Yes: Breast Exam Deferred Cardiology: Yes: Regular Rhythm, Regular Rate Abdominal: Yes: Normal Bowel Sounds, Non Tender, Soft Back: Yes: Normal Inspection Musculoskeletal: Yes: full range of Motion, Gait Steady Extremities: Yes: Normal Capillary Refill, Normal Inspection, Normal Range of Motion, Non-Tender Neurological: Yes: Fully Oriented, Alert, Other (mood labile, flat affect) Integumentary: Yes: Normal Color, Warm, Other (Fungal infection in all nail bed) Lymphatic: Yes: Within Normal Limits Cleared for Admission S - Detox or Rehab [facility] Level of Care: Medically Managed Detox Regimen/Protocol: Librium Breathalyzer - Breathalyzer Breathalyzer: 0 Urine Drug Screen - Test Device Lot number: [id number] Expiration date: 01/30/20 - Control Is test valid?: Yes - Results Drug screen NEGATIVE: No Urine drug screen results: THC-Marijuana, AXEL-Cocaine Inpatient Rehab Admission - Rehab Decision to Admit Inpatient rehab admission?: No
[2018-07-04] MEDS ORDERED: hydrOXYzine PAMOATE 25 MG CAPSULE (FP) PO PRN (11:36)
[2018-07-04] MEDS ORDERED: IBUPROFEN 400 MG TABLET (FP) PO PRN (11:36)
[2018-07-04] MEDS ORDERED: METHOCARBAMOL 500 MG TABLET PO PRN (11:36)
[2018-07-04] MEDS ORDERED: ONDANSETRON *ODT* 4 MG TABLET SL PRN (11:36)
[2018-07-04] MEDS ORDERED: MAGNESIUM CITRATE 300 ML BOTTLE PO PRN (11:36)
[2018-07-04] MEDS ORDERED: MAG HYDROX/AL HYDROX/SIMETH 30 ML UNIT-DOSE CUP PO PRN (11:36)
[2018-07-04] MEDS ORDERED: MAGNESIUM HYDROX 2400MG/30ML ORAL SUSPENSION 30 ML CUP PO PRN (11:36)
[2018-07-04] MEDS ORDERED: BISMUTH SUBSALICYLATE 524 MG/30 ML UD PO PRN (11:36)
[2018-07-04] MEDS ORDERED: MENTHOL/PHENOL 1 EACH UD MM PRN (11:36)
[2018-07-04] MEDS ORDERED: MELATONIN 5 MG TABLETS PO PRN (11:36)
[2018-07-04] MEDS ORDERED: ACETAMINOPHEN 325 MG TABLET (FP) PO PRN ×2 (11:36)
[2018-07-04] MEDS ORDERED: chlordiazePOXIDE HCL 10 MG CAPSULE PO PRN (11:36)
[2018-07-04] MEDS: chlordiazePOXIDE HCL 25 MG CAPSULE PO SCH ×2 (13:08→22:31)
[2018-07-04] MEDS: THIAMINE HCL 100 MG TABLET (FP) PO SCH (22:31)
[2018-07-05] MEDS: chlordiazePOXIDE HCL 25 MG CAPSULE PO SCH (06:44)
[2018-07-05] MEDS: PRENATAL VITAMINS W/ FOLIC ACID TABLET (FP) PO SCH (10:06)
[2018-07-05] MEDS: chlordiazePOXIDE 5 MG CAPSULE PO SCH ×2 (12:17→22:39)
--- NOTE | 2018-07-05 12:40 | PN ---
S CIWA - CIWA Score Nausea/Vomitin-No Nausea/No Vomiting Muscle Tremors: 3 Anxiety: 3 Agitation: 1-Slight > Activity Paroxysmal Sweats: 3 Orientation: 0-Oriented Tacttile Disturbances: 0-None Auditory Disturbances: 2-Mild Harshness/Frighten Visual Disturbances: 0-None Headache: 0-None Present CIWA-Ar Total Score: 12 BHS Progress Note (SOAP) Subjective: Anxious, Tremors, Sweating. Objective: PATIENT A & O X 3, OBSERVED AMBULATING ON UNIT UNASSISTED. IN NO ACUTE DISTRESS. 07/05/18 12:41 Vital Signs Temperature 97.7 F 07/05/18 09:27 Pulse Rate 55 L 07/05/18 09:27 Respiratory Rate 18 07/05/18 09:27 Blood Pressure 132/57 L 07/05/18 09:27 O2 Sat by Pulse Oximetry (%) Laboratory Tests 07/04/18 11:37 POC Glucometer 125 PATIENT REFUSED TO HAVE ADMISSION LABS DRAWN. TAI CHI INSTRUCTOR WILL ENCOURAGE PATIENT TO HAVE DRAWN TOMORROW. 07/05/18 12:42 Assessment: 07/05/18 12:42 WITHDRAWAL SYMPTOMS. Plan: CONTINUE DETOX. INCREASE DAILY PO FLUID / WATER INTAKE.
[2018-07-05] MEDS: THIAMINE HCL 100 MG TABLET (FP) PO SCH (22:39)
[2018-07-06] MEDS: chlordiazePOXIDE 5 MG CAPSULE PO SCH (06:04)
--- NOTE | 2018-07-06 09:41 | PN ---
BHS CIWA - CIWA Score Nausea/Vomitin Muscle Tremors: 2 Anxiety: 2 Agitation: 2 Paroxysmal Sweats: 1-Minimal Palms Moist Orientation: 0-Oriented Tacttile Disturbances: 1-Very Mild Itch/Numbness Auditory Disturbances: 1-Very Mild Visual Disturbances: 0-None Headache: 2-Mild CIWA-Ar Total Score: 13 BHS Progress Note (SOAP) Subjective: alert,irritable,anxious,interrupted sleep,tremor Objective: 07/06/18 09:40 Vital Signs Temperature 98.2 F 07/05/18 22:31 Pulse Rate 55 L 07/05/18 22:31 Respiratory Rate 18 07/06/18 03:30 Blood Pressure 135/89 07/05/18 22:31 O2 Sat by Pulse Oximetry (%) Laboratory Last Values POC Glucometer 125 UNITS (80-120) 07/04/18 11:37 labs pending Assessment: 07/06/18 09:40 withdrawal symptom Plan: continue detox,discharge in am
[2018-07-06] MEDS: PRENATAL VITAMINS W/ FOLIC ACID TABLET (FP) PO SCH (10:04)
[2018-07-06 10:14] LABS: BASO % 0.2 % (0-2.0); EOS % 4.7 % (0-4.5); HEMATOCRIT 40.3 % (35.4-49); HEMOGLOBIN 12.9 GM/dL (11.7-16.9); LYMPH % 48.6 % (8-40); MCH 22.4 pg (25.7-33.7); MCHC 31.9 g/dl (32.0-35.9); MEAN CELL VOLUME 70.2 fl (80-96); MONO % 9.5 % (3.8-10.2); PLATELET COUNT 142 K/MM3 (134-434); RBC 5.75 M/mm3 (4.00-5.60); RDW 20.6 % (11.9-15.9)
[2018-07-06 10:26] LABS: ALBUMIN 3.4 g/dl (3.4-5.0); ALK PHOS 80 U/L (45-117); ANION GAP 6 MMOL/L (8-16); BILIRUBIN,TOTAL 0.4 mg/dL (0.2-1); BLOOD UREA NITROGEN 13 mg/dL (7-18); CALCIUM 9.2 mg/dL (8.5-10.1); CHLORIDE 104 mmol/L (98-107); CO2 27 mmol/L (21-32); GLUCOSE,RANDOM 172 mg/dL (74-106); POTASSIUM 3.9 mmol/L (3.5-5.1); SGOT/AST 20 U/L (15-37); SGPT/ALT 28 U/L (13-61); SODIUM 137 mmol/L (136-145); TOT PROT 7.4 g/dl (6.4-8.2)
[2018-07-06] MEDS: chlordiazePOXIDE HCL 10 MG CAPSULE PO SCH ×2 (12:10→22:39)
[2018-07-06] MEDS ORDERED: chlordiazePOXIDE HCL 10 MG CAPSULE PO PRN (13:00)
[2018-07-06 14:16] LABS: ANISOCYTOSIS 2+; MACROCYTOSIS 0; PLATELET ESTIMATE DECREASED
[2018-07-06] MEDS: THIAMINE HCL 100 MG TABLET (FP) PO SCH (22:40)
[2018-07-07] MEDS: chlordiazePOXIDE HCL 10 MG CAPSULE PO SCH (07:21)
[2018-07-07 08:19] VITALS: BP 102/45; PULSE 78; TEMP 97.9
--- NOTE | 2018-07-07 08:28 | DS ---
[facility] Detox Discharge Summary Admission Date: 07/04/18 Discharge Date: 07/07/18 - History Present History: Alcohol Dependence, Cocaine Dependence, Opioid Dependence - Physical Exam Results Vital Signs: Vital Signs Temperature 97.9 F 07/07/18 08:18 Pulse Rate 78 07/07/18 08:18 Respiratory Rate 18 07/07/18 08:18 Blood Pressure 102/45 L 07/07/18 08:18 O2 Sat by Pulse Oximetry (%) - Treatment Hospital Course: Detox Protocol Followed, Detoxed Safely, Responded well, Discharged Condition Good, Rehab Referral Accepted - Medication Discharge Medications: Ambulatory Orders Abacavir/Dolutegravir/Lamivudi [Triumeq Tablet] 1 each PO DAILY 03/30/18 Benztropine Mesylate [Cogentin -] 0.5 mg PO DAILY 03/30/18 Haloperidol [Haldol -] 5 mg PO DAILY 03/30/18 Simvastatin [Zocor] 10 mg PO HS 03/30/18 Aspirin [ASA -] 81 mg PO DAILY #14 tab.chew 04/08/18 Metformin HCl [Glucophage] 500 mg PO BID #60 tablet 04/08/18 - Diagnosis (1) Cocaine dependence Current Visit: Yes Status: Active (2) Substance-induced sleep disorder Current Visit: No Status: Acute (3) Alcohol dependence with uncomplicated withdrawal Current Visit: Yes Status: Chronic (4) Bipolar disorder Current Visit: No Status: Chronic (5) Cocaine dependence Current Visit: Yes Status: Chronic Qualifiers: Substance use status: uncomplicated (6) Diabetes 1.5, managed as type 2 Current Visit: No Status: Chronic (7) HIV positive Current Visit: Yes Status: Chronic (8) HLD (hyperlipidemia) Current Visit: Yes Status: Chronic Qualifiers: Hyperlipidemia type: unspecified Qualified Code(s): E78.5 - Hyperlipidemia , unspecified (9) HTN (hypertension) Current Visit: Yes Status: Chronic Qualifiers: Hypertension type: unspecified Qualified Code(s): I10 - Essential (primary ) hypertension (10) Nicotine dependence Current Visit: Yes Status: Chronic Qualifiers: Nicotine product type: cigarettes Substance use status: uncomplicated Qualified Code(s): F17.210 - Nicotine dependence, cigarettes, uncomplicated (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
[2018-07-07] MEDS: PRENATAL VITAMINS W/ FOLIC ACID TABLET (FP) PO SCH (11:03)
== END 2018-07-07 12:08 | disposition home or self-care (01) | DRG 774 ==
LOC: YASAS 09:01 → Y6N 11:33
PROVIDERS: ADMIT Surgery; ATTEND Surgery
PROC: HZ2ZZZZ Detoxification Services for Substance Abuse Treatment (ICD-10-PCS; principal; 2018-07-04)
DX: F10.230 Alcohol dependence with withdrawal, uncomplicated (principal); F14.20 Cocaine dependence, uncomplicated; F16.20 Hallucinogen dependence, uncomplicated; F17.210 Nicotine dependence, cigarettes, uncomplicated; F31.9 Bipolar disorder, unspecified; F19.24 Other psychoactive substance dependence with psychoactive substance-induced mood disorder; F19.282 Other psychoactive substance dependence with psychoactive substance-induced sleep disorder; F20.9 Schizophrenia, unspecified; I10 Essential (primary) hypertension; E11.9 Type 2 diabetes mellitus without complications; E78.5 Hyperlipidemia, unspecified; B20 Human immunodeficiency virus [HIV] disease; Z91.14 Patient's other noncompliance with medication regimen; Z59.0 Homelessness
CPT/HCPCS: 36415; 80053; 82962; 85025; 86593

== ENCOUNTER 2019-11-28 09:45 | Inpatient (IN) | payer OTHER ==
--- OUTSIDE RECORDS SUMMARY | 2019-11-28 09:53 | XMS ---
:1965 Author Organization [facility] Care Team Providers Name Role Phone PHILLIP SUNSHINE MD Unavailable Unavailable Michele SUNSHINE MD Unavailable Unavailable Michele SUNSHINE MD Unavailable Unavailable MD RUDDY Unavailable Unavailable MD KENYON Unavailable Unavailable MD DAVIN Unavailable Unavailable Re-disclosure Warning The records that you are about to access may contain information from federally- assisted alcohol or drug abuse programs. If such information is present, then the following federally mandated warning applies: This information has been disclosed to you from records protected by federal confidentiality rules (42 CFR part 2). The federal rules prohibit you from making any further disclosure of this information unless further disclosure is expressly permitted by the written consent of the person to whom it pertains or as otherwise permitted by 42 CFR part 2. A general authorization for the release of medical or other information is NOT sufficient for this purpose. The Federal rules restrict any use of the information to criminally investigate or prosecute any alcohol or drug abuse patient.The records that you are about to access may contain highly sensitive health information, the redisclosure of which is protected by Article 27-F of the [facility] Public Health law. If you continue you may haveaccess to information: Regarding HIV / AIDS; Provided by facilities licensed or operated by the [facility] Office of Mental Health; or Provided by the [facility] Office for People With Developmental Disabilities. If such information is present, then the following [facility] mandated warning applies: This information has been disclosed to you from confidential records which are protected by state law. State law prohibits you from making any further disclosure of this information without the specific written consent of the person to whom it pertains, or as otherwise permitted by law. Any unauthorized further disclosure in violation of state law may result in a fine or [place] health care facility sentence or both. A general authorization for the release of medical or other information is NOT sufficient authorization for further disclosure. Encounters Encounter Providers Location Date Indications Data Source(s ) Inpatient Attender: CITLALY ST[facility]D [facility] : [facility] 07/21/2018 10:37:00 PM EDT Patient discharged. Outpatient [facility] 07/16/2018 10:04:00 AM EDT - [address] [place] [address] 08:58:00 AM EDT Patient discharged. Inpatient Attender: PHILLIP SUNSHINE V-3N 07/08/2018 [facility]:50[facility] 11[facility]23:00 AM EDT [facility] Patient discharged. Inpatient Attender: CITLALY [facility]07[facility]2018 [facility] - 07/08/2018 [facility] DAVIN 10:49:00 AM EDT Outpatient [facility] 07/07/2018 12:47:00 [facility] EDT - 07/07/2018 [facility] 05:38:00 PM EDT Medications Medication Brand Start Product Dose Route Administrative Pharmacy [facility] Indications Reaction Description Data Name Date Form Instructions Instructions Source(s) Haloperidol Halope ORAL complet Halope ridol [facility] 5 MG Oral ridol 2018 Table ed - 5 MG ORAL [facility] Tablet - 5 MG 12:00: t Tablet Hospita l ORAL 00 AM Tablet EDT abacavir Triume ORAL complet Triumeq - [facility] 600 MG / q - 2018 Table ed 600 MG-50 Quentin nts dolutegravi 600 12:00: t MG-300 MG H ospital r 50 MG / MG-50 00 AM ORAL Tablet Lamivudine MG-300 EDT 300 MG Oral MG Tablet ORAL [Triumeq] Tablet Metformin metFOR ORAL complet metFORMI N [facility] hydrochlori MIN 2018 Table ed HCl - 500 MG [facility] 500 MG HCl - 12:00: t ORAL Tablet Hospital Oral Tablet 500 MG 00 AM ORAL EDT Tablet Metformin metFOR ORAL complet metFORMI N [facility] hydrochlori MIN 2018 Table ed HCl - 500 MG [facility] 500 MG HCl - 12:00: t ORAL Tablet Hospital Oral Tablet 500 MG 00 AM ORAL EDT Tablet atorvastati Atorva ORAL complet Atorva statin [facility] n 10 MG statin 2018 Table ed Calcium - 10 V incents Oral Tablet Calciu 12:00: t MG ORAL H ospital m - 10 00 AM Tablet MG EDT ORAL Tablet Insurance Providers Payer name Policy type Policy ID Covered Covered alliance party's Policy P jo / Coverage alliance party ID relationship to [employer] ormation type [place] MEDICAID [id number] SP [id number] SELF PAY 00 Self 00 MEDICAID INP [id number] Self [id number] H REHAB SELF PAY 00 Self 00 MEDICAID INP [id number] Self [id number] H PSYCH SELF PAY 0000 Self 0000 MEDICAID INP [id number] Self [id number] H REHAB Problems, Conditions, and Diagnoses Code Display Name Description Problem Type Effective Dates Data Source(s) 296.90 UNSPECIFIED Mood disorder NOS Diagnosis 08/03/2009 [facility] EPISODIC MOOD 10:00:00 AM EDT Hospit al DISORDER Results ID Date Data Source [id number] 08/23/2019 11:37:00 AM EDT [facility] Name Value Range Interpretation Description Data Sup porting Code Source(s) Document(s ) SARS [facility] CORONAVIRUS 2 RNA This lab was ordered by [facility] and reported by [facility]. Procedure Vital Signs ID Date Data Source UNK Name Value Range Interpretation Code Description Data Source(s) Diastolic blood 95 mmHg 95 mmHg [facility] Systolic blood 150 mmHg 150 mmHg [facility] Respiratory rate 18 bpm 18 bpm [facility] Heart rate 62 bpm 62 bpm [facility] Body temperature 97.2 Fahrenheit 97.2 Fahrenh t [facility] Diastolic blood 90 mmHg 90 mmHg [facility] Systolic blood 149 mmHg 149 mmHg [facility] Respiratory rate 18 bpm 18 bpm [facility] Heart rate 69 bpm 69 bpm [facility] Body temperature 97.6 Fahrenheit 97.6 Fahrenhei t [facility] Diastolic blood 77 mmHg 77 mmHg [facility] Systolic blood 178 mmHg 178 mmHg [facility] Respiratory rate 18 bpm 18 bpm [facility] Heart rate 64 bpm 64 bpm [facility] Body temperature 97.2 Fahrenheit 97.2 Fahrenhei t [facility] Body weight 183 lbs 183 lbs [facility] Diastolic blood 83 mmHg 83 mmHg [facility] Systolic blood 152 mmHg 152 mmHg [facility] Respiratory rate 18 bpm 18 bpm [facility] Heart rate 61 bpm 61 bpm [facility] Body temperature 97.2 Fahrenheit 97.2 Fahrenhei t [facility] Diastolic blood 96 mmHg 96 mmHg [facility] Systolic blood 162 mmHg 162 mmHg [facility] Respiratory rate 18 bpm 18 bpm [facility] Heart rate 78 bpm 78 bpm [facility] Body temperature 98.4 Fahrenheit 98.4 Fahrenhei t [facility] Diastolic blood 82 mmHg 82 mmHg [facility] Systolic blood 139 mmHg 139 mmHg [facility] Respiratory rate 18 bpm 18 bpm [facility] Heart rate 57 bpm 57 bpm [facility] Body temperature 98.2 Fahrenheit 98.2 Fahrenhei t [facility] Diastolic blood 80 mmHg 80 mmHg [facility] Systolic blood 128 mmHg 128 mmHg [facility] Heart rate 61 bpm 61 bpm [facility] Diastolic blood 81 mmHg 81 mmHg [facility] Systolic blood 137 mmHg 137 mmHg [facility] Respiratory rate 18 bpm 18 bpm [facility] Heart rate 59 bpm 59 bpm [facility] Body temperature 98.1 Fahrenheit 98.1 Fahrenhei t [facility] Diastolic blood 83 mmHg 83 mmHg [facility] Systolic blood 139 mmHg 139 mmHg [facility] Respiratory rate 18 bpm 18 bpm [facility] Heart rate 62 bpm 62 bpm [facility] Body temperature 98.3 Fahrenheit 98.3 Fahrenhei t [facility] Body weight 182 lbs 182 lbs [facility] Diastolic blood 77 mmHg 77 mmHg [facility] Systolic blood 141 mmHg 141 mmHg [facility] Respiratory rate 18 bpm 18 bpm [facility] Heart rate 60 bpm 60 bpm [facility] Body temperature 98.5 Fahrenheit 98.5 Fahrenhei t [facility] Diastolic blood 86 mmHg 86 mmHg [facility] Systolic blood 152 mmHg 152 mmHg [facility] Respiratory rate 18 bpm 18 bpm [facility] Heart rate 56 bpm 56 bpm [facility] Body temperature 97.2 Fahrenheit 97.2 [facility]
--- NOTE | 2019-11-28 10:00 | BHS.RME ---
Substance Use & Tx History - Substance Use History Alcohol Substance amount: 3 beers - 40 oz Frequency of use: Daily Substance route: Oral Date of Last Use: 11/27/19 (started age 16) Cocaine- Powder Substance amount: $10 Frequency of use: Daily Substance route: Inhalation (ex: sniffing or snorting) Date of Last Use: 11/27/19 (started age 50) Nicotine Substance amount: 3 ciggs Frequency of use: Daily Substance route: Inhalation (ex: sniffing or snorting) Date of Last Use: 11/28/19 (started age 16) Physical/Psych/Mental Status - Behavior General Behavior: Increased activity (restlessness, agitation) Eye Contact: Normal - Cooperativeness Cooperativeness: Hostile - Thinking Thought Processes: Tight, Logical, Goal Directed - Physical Health Problems Is patient presently having any pain?: No Does patient presently have any injuries (include location): No Does patient currently have a fever: No Is patient : No CIWA Nausea/Vomitin-Mild Nausea/No Vomiting Muscle Tremors: 3 Anxiety: 4-Mod. Anxious/Guarded Agitation: 4-Moderately Restless Paroxysmal Sweats: 4-Forehead w/Sweat Beads Orientation: 0-Oriented Tacttile Disturbances: 0-None Auditory Disturbances: 0-None Visual Disturbances: 0-None Headache: 0-None Present CIWA-Ar Total Score: 16
[2019-11-28 10:19] VITALS: BMI 29.7
--- NOTE | 2019-11-28 10:39 | HP ---
CIWA Score Nausea/Vomitin-Mild Nausea/No Vomiting Muscle Tremors: 3 Anxiety: 4-Mod. Anxious/Guarded Agitation: 4-Moderately Restless Paroxysmal Sweats: 4-Forehead w/Sweat Beads Orientation: 0-Oriented Tacttile Disturbances: 0-None Auditory Disturbances: 0-None Visual Disturbances: 0-None Headache: 0-None Present CIWA-Ar Total Score: 16 - Admission Criteria OASAS Guidelines: Admission for Medically Managed Detox: Requires at least one of the followin. CIWA greater than 12 2. Seizures within the past 24 hours 3. Delirium tremens within the past 24 hours 4. Hallucinations within the past 24 hours 5. Acute intervention needed for co occurring medical disorder 6. Acute intervention needed for co occurring psychiatric disorder 7. Severe withdrawal that cannot be handled at a lower level of care (continued vomiting, continued diarrhea, abnormal vital signs) requiring intravenous medication and/or fluids 8. Admitting History and Physical - Smoking History Smoking history: Never smoked Have you smoked in the past 12 months: No Aproximately how many cigarettes per day: 0 - Alcohol/Substance Use Hx Alcohol Use: Yes Admission ROS [facility] Chief Complaint: " I need this and I want to stop using drugs." Allergies/Adverse Reactions: Allergies Allergy/AdvReac Type Severity Reaction Status Date / Time No Known Allergies Allergy Verified 07/04/18 09:42 History of Present Illness: 53 year old male with history male with history of alcohol dependence with withdrawal, cocaine use disorder and nicotine dependence. He has HIV disease, D M, HTN, HLD. 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 CIWA=16 LYNDSAY=0 He will contract for completion and abide by rules and respect staff. Exam Limitations: No Limitations - Ebola screening Have you traveled outside of the country in the last 21 days: No Have you had contact with anyone from an Ebola affected area: No Have you been sick,other than usual withdrawal symptoms: No Do you have a fever: No - Review of Systems Constitutional: Diaphoresis EENT: reports: No Symptoms Reported Respiratory: reports: No Symptoms reported Cardiac: reports: No Symptoms Reported GI: reports: No Symptoms Reported : reports: No Symptoms Reported Musculoskeletal: reports: No Symptoms Reported Integumentary: reports: No Symptoms Reported Neuro: reports: Headache, Tremors Endocrine: reports: No Symptoms Reported Hematology: reports: No Symptoms Reported Psychiatric: reports: Judgement Intact, Mood/Affect Appropiate, Orientated x3, Agitated, Anxious Other Systems: Reviewed and Negative Patient History - Patient Medical History Hx Anemia: No Hx Asthma: No Hx Chronic Obstructive Pulmonary Disease (COPD): No Hx Cancer: No Hx Cardiac Disorders: No Hx Congestive Heart Failure: No Hx Hypertension: Yes Hx Hypercholesterolemia: Yes Hx Pacemaker: No HX Cerebrovascular Accident: No Hx Seizures: No Hx Dementia: No Hx Diabetes: Yes (Not compliant with Meds) Hx Gastrointestinal Disorders: No Hx Liver Disease: No Hx Genitourinary Disorders: No Hx Sexually Transmitted Disorders: No Hx Renal Disease (ESRD): No Hx Thyroid Disease: No Hx Human Immunodeficiency Virus (HIV): Yes (DIAGNOSED IN 200, not compliant with medication) Hx Hepatitis C: No Hx Depression: No Hx Suicide Attempt: No Hx Bipolar Disorder: Yes Hx Schizophrenia: No - Patient Surgical History Past Surgical History: No Hx Neurologic Surgery: No Hx Cataract Extraction: No Hx Cardiac Surgery: No Hx Lung Surgery: No Hx Breast Surgery: No Hx Breast Biopsy: No Hx Abdominal Surgery: No Hx Appendectomy: No Hx Cholecystectomy: No Hx Genitourinary Surgery: No Hx Section: No Hx Orthopedic Surgery: No Anesthesia Reaction: No - PPD History Previous Implant?: Yes Documented Results: Positive w/proof Results: CXR (-) APR 20 - Smoking Cessation Smoking history: Current every day smoker Have you smoked in the past 12 months: No Aproximately how many cigarettes per day: 3 Hx Chewing Tobacco Use: No Initiated information on smoking cessation: No - Substances abused Alcohol Other (specify): 3 beers 40 0z Substance route: Oral Frequency: Daily Amount used: 40 0z beers Age of first use: 16 Date of last use: 11/27/19 Cocaine Substance route: Inhalation Frequency: Daily Amount used: $10 Age of first use: 50 Date of last use: 11/27/19 Admission Physical Exam [facility] - Vital Signs Vital Signs: Vital Signs - 24 hr 11/28/19 10:18 Temperature 97.8 F Pulse Rate 69 Respiratory 18 Rate Blood Pressure 166/93 Cleared for Admission [facility] - Detox or Rehab [facility] Level of Care: Medically Managed Detox Regimen/Protocol: Librium Claeared for Rehab Admission: No Screened but not Admitted - Documentation of Visit Screened but not Admitted: No Breathalyzer - Breathalyzer Breathalyzer: 0 Vital Signs - Vital Signs Vital signs refused: No Temperature: 97.8 F Pulse Rate: 69 Respiratory Rate: 18 Blood Pressure: 166/93 BP Location: Left Arm Blood Pressure position: Sitting - Height Height: 5 ft 4 in - Weight Weight: 173 lb Weight measurement method: Standing scale - BMI Body Mass Index (BMI): 29.7 - Bowel Function Bowel Movement: No Urine Drug Screen - Test Device Lot number: [id number] Expiration date: 06/07/21 - Control Is test valid?: Yes - Results Drug screen NEGATIVE: No Urine drug screen results: THC-Marijuana, AXEL-Cocaine, BZO-Benzodiazepines Inpatient Rehab Admission - Rehab Decision to Admit Inpatient rehab admission?: No
[2019-11-28] MEDS ORDERED: NICOTINE 7 MG/24 HOURS TOPICAL PATCH TD SCH (10:45)
[2019-11-28] MEDS ORDERED: chlordiazePOXIDE HCL 25 MG CAPSULE PO PRN (10:45)
[2019-11-28] MEDS ORDERED: ACETAMINOPHEN 325 MG TABLET (FP) PO PRN ×2 (10:45)
[2019-11-28] MEDS ORDERED: MENTHOL/PHENOL 1 EACH UD MM PRN (10:45)
[2019-11-28] MEDS ORDERED: MAGNESIUM HYDROX 2400MG/30ML ORAL SUSPENSION 30 ML CUP PO PRN (10:45)
[2019-11-28] MEDS ORDERED: MAGNESIUM CITRATE 300 ML BOTTLE PO PRN (10:45)
[2019-11-28] MEDS ORDERED: METHOCARBAMOL 500 MG TABLET PO PRN (10:45)
[2019-11-28] MEDS ORDERED: ONDANSETRON *ODT* 4 MG TABLET SL PRN (10:45)
[2019-11-28] MEDS ORDERED: NICOTINE POLACRILEX 2 MG GUM BUC PRN (10:45)
[2019-11-28] MEDS ORDERED: BISMUTH SUBSALICYLATE 262 MG/15 ML BTL PO PRN (10:45)
[2019-11-28] MEDS ORDERED: MAG HYDROX/AL HYDROX/SIMETH 30 ML UNIT-DOSE CUP PO PRN (10:45)
[2019-11-28] MEDS ORDERED: IBUPROFEN 400 MG TABLET (FP) PO PRN (10:45)
--- OUTSIDE RECORDS SUMMARY | 2019-11-28 11:55 | XMS ---
:1965 Author Organization [facility] Care Team Providers Name Role Phone PHILLIP [...] is protected by Article 27-F of the [facility] Public Health law. If you continue you may haveaccess to information: Regarding HIV / AIDS; Provided by facilities licensed or operated by the [facility] Office of Mental Health; or Provided by the [facility] Office for People With Developmental Disabilities. If such information is present, then the following [facility] mandated warning applies: This information has [...] law may result in a fine or long term sentence or both. A general authorization for the release of medical or other information is NOT sufficient authorization for further disclosure. Encounters Encounter Providers Location Date Indications Data Source(s ) Inpatient Attender: CITLALY STV-1D 07/16/2018 [facility] 11:23:00 AM EDT Hospital : [facility] 07/21/2018 10:37:00 PM EDT Patient discharged. Outpatient ST 07/16/2018 10:04:00 AM EDT - [address] [place] [address] 08:58:00 AM EDT Patient discharged. Inpatient Attender: PHILLIP SUNSHINE STV-3N [facility] 11:23:00 AM EDT [facility] Patient discharged. Inpatient Attender: CITLALY STV-1D [facility]07[facility]2018 [facility]:16[facility] - 07/08/2018 [facility] 10:49:00 AM EDT Outpatient [facility] 07/07/2018 12:47:00 [facility] EDT - 07/07/2018 [facility] 05:38:00 PM EDT Medications Medication Brand Start Product Dose Route Administrative Pharmacy [facility] Indications Reaction Description Data Name Date [...] Tablet Metformin metFOR ORAL complet metFORMI N [facility] hydrochlori MIN 2018 Table ed HCl - 500 MG [facility] 500 MG HCl - 12:00: t ORAL [facility] Hospital Oral Tablet 500 MG 00 AM ORAL EDT Tablet Metformin metFOR ORAL complet metFORMI N [facility] hydrochlori MIN 2018 Table ed HCl - [...] name Policy type Policy ID Covered Covered libertarian's Policy P jo / Coverage libertarian ID relationship to [facility] ormation type [facility] MEDICAID [id number] SP [id number] SELF PAY 00 Self 00 MEDICAID INP [id number] Self [id number] H REHAB SELF PAY 00 Self 00 MEDICAID INP [id number] Self [id number] H PSYCH SELF PAY 0000 Self 0000 MEDICAID INP [id number] Self [id number] H REHAB Problems, Conditions, and Diagnoses Code Display Name Description Problem Type Effective Dates Data Source(s) 296.90 UNSPECIFIED Mood disorder NOS Diagnosis 08/03/2009 [facility] MOOD 10:00:00 AM EDT Hospit al DISORDER Results ID Date Data Source [id number] 08/23/2019 11:37:00 AM EDT [facility] Name Value Range Interpretation Description Data Sup porting Code Source(s) Document(s ) SARS [facility] CORONAVIRUS 2 RNA This lab was ordered by [facility] and reported by [facility]. Procedure Vital Signs ID Date Data Source UNK Name Value Range Interpretation Code Description Data Source(s) Diastolic blood 95 mmHg 95 mmHg [facility] Systolic blood 150 mmHg 150 mmHg [facility] Respiratory rate 18 bpm 18 bpm [facility] Heart rate 62 bpm 62 bpm [facility] Body temperature 97.2 Fahrenheit 97.2 Fahrenh t [facility] Diastolic blood 90 mmHg 90 mmHg [facility] Systolic blood 149 mmHg 149 mmHg [facility] Respiratory rate 18 bpm 18 bpm [facility] Heart rate 69 bpm 69 bpm [facility] Body temperature 97.6 Fahrenheit 97.6 Fahrenh t [facility] Diastolic blood 77 mmHg 77 mmHg [facility] Systolic blood 178 mmHg 178 mmHg [facility] Respiratory rate 18 bpm 18 bpm [facility] Heart rate 64 bpm 64 bpm [facility] Body temperature 97.2 Fahrenheit 97.2 Fahrenhei t [facility] Body weight 183 lbs 183 lbs [facility] Diastolic blood 83 mmHg 83 mmHg [facility] Systolic blood 152 mmHg 152 mmHg [facility] Respiratory rate 18 bpm 18 bpm [facility] Heart rate 61 bpm 61 bpm [facility] Body temperature 97.2 Fahrenheit 97.2 Fahrenhei t [facility] Diastolic blood 96 mmHg 96 mmHg [facility] Systolic blood 162 mmHg 162 mmHg [facility] Respiratory rate 18 bpm 18 bpm [facility] Heart rate 78 bpm 78 bpm [facility] Body temperature 98.4 Fahrenheit 98.4 Fahrenhei t [facility] Diastolic blood 82 mmHg 82 mmHg [facility] Systolic blood 139 mmHg 139 mmHg [facility] Respiratory rate 18 bpm 18 bpm [facility] Heart rate 57 bpm 57 bpm [facility] Body temperature 98.2 Fahrenheit 98.2 Fahrenhei t [facility] Diastolic blood 80 mmHg 80 mmHg [facility] Systolic blood 128 mmHg 128 mmHg [facility] Heart rate 61 bpm 61 bpm [facility] Diastolic blood 81 mmHg 81 mmHg [facility] Systolic blood 137 mmHg 137 mmHg [facility] Respiratory rate 18 bpm 18 bpm [facility] Heart rate 59 bpm 59 bpm [facility] Body temperature 98.1 Fahrenheit 98.1 Fahrenhei t [facility] Diastolic blood 83 mmHg 83 mmHg [facility] Systolic blood 139 mmHg 139 mmHg [facility] Respiratory rate 18 bpm 18 bpm [facility] Heart rate 62 bpm 62 bpm [facility] Body temperature 98.3 Fahrenheit 98.3 Fahrenhei t [facility] Body weight 182 lbs 182 lbs [facility] Diastolic blood 77 mmHg 77 mmHg [facility] Systolic blood 141 mmHg 141 mmHg [facility] Respiratory rate 18 bpm 18 bpm [facility] Heart rate 60 bpm 60 bpm [facility] Body temperature 98.5 Fahrenheit 98.5 Fahrenhei t [facility] Diastolic blood 86 mmHg 86 mmHg [facility] Systolic blood 152 mmHg 152 mmHg [facility] Respiratory rate 18 bpm 18 bpm [facility] Heart rate 56 bpm 56 bpm [facility] Body temperature 97.[address] [facility]
[2019-11-28 13:34] LABS: HEMATOCRIT 39.3 % (35.4-49); HEMOGLOBIN 12.5 GM/dL (11.7-16.9); MCH 22.1 pg (25.7-33.7); MCHC 31.7 g/dl (32.0-35.9); MEAN CELL VOLUME 69.6 fl (80-96); MEAN PLT VOLUME 9.8 fl (7.5-11.1); PLATELET COUNT 127 K/MM3 (134-434); RBC 5.65 M/mm3 (4.00-5.60); RDW 16.7 % (11.9-15.9); WHITE BLOOD COUNT 4.8 K/mm3 (4.0-10.0)
[2019-11-28] MEDS: PRENATAL VITAMINS W/ FOLIC ACID TABLET (FP) PO SCH (13:34)
[2019-11-28] MEDS: chlordiazePOXIDE HCL 25 MG CAPSULE PO SCH ×3 (13:34→22:46)
[2019-11-28] MEDS: hydrOXYzine PAMOATE 25 MG CAPSULE (FP) PO SCH ×3 (13:39→22:46)
[2019-11-28 13:41] LABS: ALBUMIN 3.5 g/dl (3.4-5.0); BILIRUBIN,TOTAL 0.2 mg/dL (0.2-1); BLOOD UREA NITROGEN 18.4 mg/dL (7-18); CALCIUM 9.1 mg/dL (8.5-10.1); CREATININE 1.2 mg/dL (0.55-1.3); POTASSIUM 4.4 mmol/L (3.5-5.1); TOT PROT 8.3 g/dl (6.4-8.2)
[2019-11-28] MEDS: ABACAVIR/DOLUTEGRAVIR/LAMIVUDI (TRIUMEQ) TABLET -NF PO SCH (15:59)
--- NOTE | 2019-11-28 17:38 | PN ---
[facility] Progress Note Note: Psychiatry Attending's note : Patient is approached for psychiatric interview. Mr Cartagena reports fatigue. Declines to be seen today. No acute psychiatric concerns. Detoxification in progress.
[2019-11-28] MEDS: metFORMIN HCL 500 MG TABLET (FP) PO SCH (18:05)
[2019-11-28] MEDS: ATORVASTATIN CA 10 MG TABLET (FP) PO SCH (22:46)
[2019-11-28] MEDS: THIAMINE HCL 100 MG TABLET (FP) PO SCH (22:46)
[2019-11-28] MEDS: MELATONIN 5 MG TABLETS PO SCH (22:46)
[2019-11-29] MEDS: hydrOXYzine PAMOATE 25 MG CAPSULE (FP) PO SCH ×5 (05:40→22:56)
[2019-11-29] MEDS: chlordiazePOXIDE HCL 25 MG CAPSULE PO SCH ×4 (05:40→22:55)
[2019-11-29] MEDS: metFORMIN HCL 500 MG TABLET (FP) PO SCH ×2 (06:19→17:31)
[2019-11-29] MEDS: ASPIRIN 81 MG CHEWABLE TABLETS PO SCH (10:28)
[2019-11-29] MEDS: PRENATAL VITAMINS W/ FOLIC ACID TABLET (FP) PO SCH (10:28)
[2019-11-29] MEDS: ABACAVIR/DOLUTEGRAVIR/LAMIVUDI (TRIUMEQ) TABLET -NF PO SCH (10:28)
--- NOTE | 2019-11-29 10:36 | CONSULT ---
[facility] Psychiatric Consult - Data Date of interview: 11/29/19 Admission source: [facility] Identifying data: Revisit to [facility] and admission to [address] [place] [address] for this 53 y/o AA male self-referred for detoxification treatment. LIZZIE issues : alcohol, cocaine, nicotine. Patient is single, no dependents (claimed one son at a previous interview), now homeless (reportedly evicted from an O setting, [facility], in the [place]), unemployed and deprived of financial assistance. Substance Abuse History: Discussed with the patient. LIZIZE profile as follows : Smoking history: Current every day smoker. Have you smoked in the past 12 months: No. Approximately how many cigarettes per day: 3. Hx Chewing Tobacco Use: No. Initiated information on smoking cessation: No. - Substances abused. Alcohol. Other (specify): 3 beers 40 0z. Substance route: Oral. Frequency: Daily. Amount used: 40 0z beers. Age of first use: 16. Date of last use: 11/27/19. Cocaine. Substance route: Inhalation. Frequency: Daily. Amount used: $10. Age of first use: 50. Date of last use: 11/27/19. History of multiple LIZZIE treatment failures. Medical History: Medical profile is remarkable for HIV infection since 2000, hypertension, dyslipidemia and diabetes mellitus. No known allergies. Psychiatric History: Patient endorses history of multiple psychiatric hopsitalizations. Diagnosed with Schizophrenia in the 1989's. " I have been admitted to every hospital in the [facility]." Age of onset on mental illness : age 16 (self-report). [facility] to [facility]. Mr Cartagena reports that he gets prescribed haldol + cogentin (obtained from [facility] providers). No affiliation with any OPD care settings at this time. Patient denies history of suicide attempts. Physical/Sexual Abuse/Trauma History: Patient denies history of abuse. Additional Comment: Urine drug screen results: THC-Marijuana, AXEL-Cocaine, BZO- Benzodiazepines. Noted. Mental Status Exam - Mental Status Exam Alert and Oriented to: Time, Place, Person Cognitive Function: Good Patient Appearance: Unkempt, Disheveled (short stature) Mood: Nervous, Irritable Affect: Blunted Patient Behavior: Fatigued, Appropriate, Cooperative Speech Pattern: Clear Voice Loudness: Normal Thought Process: Goal Oriented Thought Disorder: Not Present Hallucinations: Denies Suicidal Ideation: Denies Homicidal Ideation: Denies Insight/Judgement: Poor Sleep: Well Appetite: Good Gait/Station: Normal Psychiatric Findings - Problem List ([place] 1, 2,3) (1) Alcohol dependence with uncomplicated withdrawal Current Visit: Yes Status: Acute (2) Cocaine dependence Current Visit: Yes Status: Acute (3) Nicotine dependence Current Visit: Yes Status: Chronic Qualifiers: Nicotine product type: cigarettes Substance use status: uncomplicated Qualified Code(s): F17.210 - Nicotine dependence, cigarettes, uncomplicated (4) Substance induced mood disorder Current Visit: Yes Status: Chronic (5) Schizophrenia Current Visit: Yes Status: Chronic (6) Non-compliance Current Visit: Yes Status: Chronic Comment: Non compliant with OPD care. - Initial Treatment Plan Initial Treatment Plan: Psychoeducation. Sleep hygiene. Support. Detoxification in progress. Patient states that he is willing to resume haloperidol + cogentin at this time. Side effects/benefits discussed in this session. Patient is made aware of risk of abnormal involuntary movements (dystonias, dyskinesias, akathisia), neuroleptic malignant syndrome, dry mouth, urinary hesitancy, b lurred vision and cardiovascular adverse events. Mr Cartagena granted consent to plan of care : haldol 5 mg po hs + cogentin 0.5 mg po hs. Observation.
--- NOTE | 2019-11-29 10:41 | PN ---
[facility] CIWA - CIWA Score Nausea/Vomitin-Mild Nausea/No Vomiting Muscle Tremors: 2 Anxiety: 3 Agitation: 3 Paroxysmal Sweats: No Perspiration Orientation: 0-Oriented Tacttile Disturbances: 1-Very Mild Itch/Numbness Auditory Disturbances: 0-None Visual Disturbances: 0-None Headache: 2-Mild CIWA-Ar Total Score: 12 S Progress Note (SOAP) Subjective: alert,irritable,anxious,interrupted sleep,tremor,aching pain in the body and b ack Objective: 11/29/19 13:28 Vital Signs Temperature 97.1 F L 11/29/19 12:46 Pulse Rate 77 11/29/19 12:46 Respiratory Rate 18 11/29/19 12:46 Blood Pressure 128/78 11/29/19 12:46 O2 Sat by Pulse Oximetry (%) 96 11/29/19 12:46 Laboratory Last Values WBC 4.8 K/mm3 (4.0-10.0) 11/28/19 10:15 RBC 5.65 M/mm3 (4.00-5.60) H 11/28/19 10:15 Hgb 12.5 GM/dL (11.7-16.9) 11/28/19 10:15 Hct 39.3 % (35.4-49) 11/28/19 10:15 MCV 69.6 fl (80-96) L 11/28/19 10:15 MCH 22.1 pg (25.7-33.7) L 11/28/19 10:15 MCHC 31.7 g/dl (32.0-35.9) L 11/28/19 10:15 RDW 16.7 % (11.9-15.9) H 11/28/19 10:15 Plt Count 127 K/MM3 (134-434) L 11/28/19 10:15 MPV 9.8 fl (7.5-11.1) 11/28/19 10:15 Sodium 138 mmol/L (136-145) 11/28/19 10:15 Potassium 4.4 mmol/L (3.5-5.1) 11/28/19 10:15 Chloride 106 mmol/L (98-107) 11/28/19 10:15 Carbon Dioxide 28 mmol/L (21-32) 11/28/19 10:15 Anion Gap 5 MMOL/L (8-16) L 11/28/19 10:15 BUN 18.4 mg/dL (7-18) H 11/28/19 10:15 Creatinine 1.2 mg/dL (0.55-1.3) 11/28/19 10:15 Est GFR (CKD-EPI)AfAm 78.43 11/28/19 10:15 Est GFR (CKD-EPI)NonAf 67.67 11/28/19 10:15 POC Glucometer 119 UNITS (80-120) 11/29/19 05:43 Random Glucose 170 mg/dL (74-106) H 11/28/19 10:15 Calcium 9.1 mg/dL (8.5-10.1) 11/28/19 10:15 Total Bilirubin 0.2 mg/dL (0.2-1) 11/28/19 10:15 AST 23 U/L (15-37) 11/28/19 10:15 ALT 29 U/L (13-61) 11/28/19 10:15 Alkaline Phosphatase 85 U/L (45-117) 11/28/19 10:15 Total Protein 8.3 g/dl (6.4-8.2) H 11/28/19 10:15 Albumin 3.5 g/dl (3.4-5.0) 11/28/19 10:15 Syphilis Serology Non-reactive (NONREACTIVE) 11/28/19 10:15 COVID-19 (IVONNE) Not detected (Not Detected) 11/28/19 11:40 Assessment: 11/29/19 13:29 withdrawal symptom Plan: continue detox librium regimen,bgm monitoring,encourage oral fluid,metfomin 500 mgs po bidac
[2019-11-29] MEDS: BENZTROPINE MESYLATE 1 MG TABLET PO SCH (22:55)
[2019-11-29] MEDS: ATORVASTATIN CA 10 MG TABLET (FP) PO SCH (22:55)
[2019-11-29] MEDS: HALOPERIDOL 5 MG TABLET PO SCH (22:55)
[2019-11-29] MEDS: MELATONIN 5 MG TABLETS PO SCH (22:55)
[2019-11-29] MEDS: BACITRACIN 0.9 GM PACKET TP SCH (22:55)
[2019-11-29] MEDS: THIAMINE HCL 100 MG TABLET (FP) PO SCH (22:55)
[2019-11-30] MEDS: metFORMIN HCL 500 MG TABLET (FP) PO SCH ×2 (06:10→18:25)
[2019-11-30] MEDS: hydrOXYzine PAMOATE 25 MG CAPSULE (FP) PO SCH ×5 (06:10→22:21)
[2019-11-30] MEDS: chlordiazePOXIDE HCL 25 MG CAPSULE PO SCH ×4 (06:10→22:21)
[2019-11-30] MEDS: ASPIRIN 81 MG CHEWABLE TABLETS PO SCH (10:18)
[2019-11-30] MEDS: BACITRACIN 0.9 GM PACKET TP SCH ×2 (10:18→22:21)
[2019-11-30] MEDS: PRENATAL VITAMINS W/ FOLIC ACID TABLET (FP) PO SCH (10:19)
[2019-11-30] MEDS: ABACAVIR/DOLUTEGRAVIR/LAMIVUDI (TRIUMEQ) TABLET -NF PO SCH (10:41)
--- NOTE | 2019-11-30 11:02 | PN ---
[facility] CIWA - CIWA Score Nausea/Vomitin-Mild Nausea/No Vomiting Muscle Tremors: 2 Anxiety: 2 Agitation: 2 Paroxysmal Sweats: No Perspiration Orientation: 0-Oriented Tacttile Disturbances: 1-Very Mild Itch/Numbness Auditory Disturbances: 0-None Visual Disturbances: 0-None Headache: 1-Very Mild CIWA-Ar Total Score: 9 S Progress Note (SOAP) Subjective: alert,irritable,anxious,interrupted sleep,aching pain,nausea Objective: 11/30/19 16:00 Vital Signs Temperature 96 F L 11/30/19 13:19 Pulse Rate 81 11/30/19 13:19 Respiratory Rate 18 11/30/19 13:19 Blood Pressure 156/92 11/30/19 13:19 O2 Sat by Pulse Oximetry (%) 97 11/30/19 13:19 Laboratory Last Values WBC 4.8 K/mm3 (4.0-10.0) 11/28/19 10:15 RBC 5.65 M/mm3 (4.00-5.60) H 11/28/19 10:15 Hgb 12.5 GM/dL (11.7-16.9) 11/28/19 10:15 Hct 39.3 % (35.4-49) 11/28/19 10:15 MCV 69.6 fl (80-96) L 11/28/19 10:15 MCH 22.1 pg (25.7-33.7) L 11/28/19 10:15 MCHC 31.7 g/dl (32.0-35.9) L 11/28/19 10:15 RDW 16.7 % (11.9-15.9) H 11/28/19 10:15 Plt Count 127 K/MM3 (134-434) L 11/28/19 10:15 MPV 9.8 fl (7.5-11.1) 11/28/19 10:15 Sodium 138 mmol/L (136-145) 11/28/19 10:15 Potassium 4.4 mmol/L (3.5-5.1) 11/28/19 10:15 Chloride 106 mmol/L (98-107) 11/28/19 10:15 Carbon Dioxide 28 mmol/L (21-32) 11/28/19 10:15 Anion Gap 5 MMOL/L (8-16) L 11/28/19 10:15 BUN 18.4 mg/dL (7-18) H 11/28/19 10:15 Creatinine 1.2 mg/dL (0.55-1.3) 11/28/19 10:15 Est GFR (CKD-EPI)AfAm 78.43 11/28/19 10:15 Est GFR (CKD-EPI)NonAf 67.67 11/28/19 10:15 POC Glucometer 164 UNITS (80-120) 11/29/19 16:25 Random Glucose 170 mg/dL (74-106) H 11/28/19 10:15 Calcium 9.1 mg/dL (8.5-10.1) 11/28/19 10:15 Total Bilirubin 0.2 mg/dL (0.2-1) 11/28/19 10:15 AST 23 U/L (15-37) 11/28/19 10:15 ALT 29 U/L (13-61) 11/28/19 10:15 Alkaline Phosphatase 85 U/L (45-117) 11/28/19 10:15 Total Protein 8.3 g/dl (6.4-8.2) H 11/28/19 10:15 Albumin 3.5 g/dl (3.4-5.0) 11/28/19 10:15 Syphilis Serology Non-reactive (NONREACTIVE) 11/28/19 10:15 COVID-19 (IVONNE) Not detected (Not Detected) 11/28/19 11:40 Assessment: 11/30/19 16:01 withdrawal symptom Plan: continue detox,bgm monitoring with metformin 500 mgs po bidac
[2019-11-30] MEDS: HALOPERIDOL 5 MG TABLET PO SCH (22:21)
[2019-11-30] MEDS: BENZTROPINE MESYLATE 1 MG TABLET PO SCH (22:21)
[2019-11-30] MEDS: THIAMINE HCL 100 MG TABLET (FP) PO SCH (22:21)
[2019-11-30] MEDS: MELATONIN 5 MG TABLETS PO SCH (22:22)
[2019-11-30] MEDS: ATORVASTATIN CA 10 MG TABLET (FP) PO SCH (22:22)
[2019-12-01] MEDS ORDERED: chlordiazePOXIDE HCL 10 MG CAPSULE PO PRN
[2019-12-01] MEDS: chlordiazePOXIDE HCL 10 MG CAPSULE PO SCH ×4 (06:00→22:16)
[2019-12-01] MEDS: metFORMIN HCL 500 MG TABLET (FP) PO SCH ×2 (06:00→17:09)
[2019-12-01] MEDS: hydrOXYzine PAMOATE 25 MG CAPSULE (FP) PO SCH ×5 (06:00→22:16)
[2019-12-01] MEDS: PRENATAL VITAMINS W/ FOLIC ACID TABLET (FP) PO SCH (10:08)
[2019-12-01] MEDS: ASPIRIN 81 MG CHEWABLE TABLETS PO SCH (10:08)
[2019-12-01] MEDS: BACITRACIN 0.9 GM PACKET TP SCH ×4 (10:08→22:17)
[2019-12-01] MEDS: ABACAVIR/DOLUTEGRAVIR/LAMIVUDI (TRIUMEQ) TABLET -NF PO SCH (10:09)
--- NOTE | 2019-12-01 10:16 | PN ---
S CIWA - CIWA Score Nausea/Vomitin-No Nausea/No Vomiting Muscle Tremors: 2 Anxiety: 2 Agitation: 2 Paroxysmal Sweats: No Perspiration Orientation: 0-Oriented Tacttile Disturbances: 0-None Auditory Disturbances: 0-None Visual Disturbances: 0-None Headache: 2-Mild CIWA-Ar Total Score: 8 BHS Progress Note (SOAP) Subjective: alert,irritable,anxious,interrupted sleep,pulled callus for right bid toe with bleeding Objective: 12/01/19 16:31 Vital Signs Temperature 97.7 F 12/01/19 12:36 Pulse Rate 82 12/01/19 12:36 Respiratory Rate 18 12/01/19 12:36 Blood Pressure 137/80 12/01/19 12:36 O2 Sat by Pulse Oximetry (%) 97 12/01/19 12:36 12/01/19 16:31 bgm 192 Assessment: 12/01/19 16:32 withdrawal symptom Plan: continue detox librium regimen,bacitracin ointment with dressing to right big toe,wound dressing bid,bgm monitoring
[2019-12-01] MEDS: ATORVASTATIN CA 10 MG TABLET (FP) PO SCH (22:16)
[2019-12-01] MEDS: BENZTROPINE MESYLATE 1 MG TABLET PO SCH (22:16)
[2019-12-01] MEDS: THIAMINE HCL 100 MG TABLET (FP) PO SCH (22:16)
[2019-12-01] MEDS: MELATONIN 5 MG TABLETS PO SCH (22:17)
[2019-12-01] MEDS: HALOPERIDOL 5 MG TABLET PO SCH (22:17)
[2019-12-02] MEDS: chlordiazePOXIDE HCL 10 MG CAPSULE PO SCH ×2 (05:20→17:37)
[2019-12-02] MEDS: hydrOXYzine PAMOATE 25 MG CAPSULE (FP) PO SCH ×5 (05:20→22:13)
[2019-12-02] MEDS: metFORMIN HCL 500 MG TABLET (FP) PO SCH ×2 (06:16→17:37)
[2019-12-02] MEDS ORDERED: INSULIN SLIDING SCALE (NOVOLOG) 1 VIAL SQ ONE (06:17)
[2019-12-02] MEDS ORDERED: MASKS NR ONE (06:37)
[2019-12-02] MEDS: PRENATAL VITAMINS W/ FOLIC ACID TABLET (FP) PO SCH (09:30)
[2019-12-02] MEDS: BACITRACIN 0.9 GM PACKET TP SCH ×4 (09:31→22:15)
[2019-12-02] MEDS: ABACAVIR/DOLUTEGRAVIR/LAMIVUDI (TRIUMEQ) TABLET -NF PO SCH (09:31)
[2019-12-02] MEDS: ASPIRIN 81 MG CHEWABLE TABLETS PO SCH (09:31)
--- NOTE | 2019-12-02 10:22 | PN ---
S CIWA - CIWA Score Nausea/Vomitin-No Nausea/No Vomiting Muscle Tremors: 1-None Visible, but [place] Anxiety: 1-Mildly Anxious Agitation: 2 Paroxysmal Sweats: No Perspiration Orientation: 0-Oriented Tacttile Disturbances: 0-None Auditory Disturbances: 0-None Visual Disturbances: 0-None Headache: 1-Very Mild CIWA-Ar Total Score: 5 BHS Progress Note (SOAP) Subjective: alert,no complaint Objective: 12/02/19 10:22 Vital Signs Temperature 97.3 F L 12/02/19 08:30 Pulse Rate 68 12/02/19 08:30 Respiratory Rate 20 12/02/19 08:30 Blood Pressure 132/73 12/02/19 08:30 O2 Sat by Pulse Oximetry (%) 95 12/02/19 08:30 bgm 216 Assessment: 12/02/19 10:22 withdrawal symptom Plan: continue detox librium regimen,bgm monitoring,discharge in am to elevate rehab,continue metformin 500 mgs po bidac
--- NOTE | 2019-12-02 14:53 | PN ---
[facility] Progress Note Note: i was told by Counselor Tej Block that Elevator denied patient for rehab patient will be going to rehab tomorrow 11/03/2019 patient accepted
[2019-12-02] MEDS: THIAMINE HCL 100 MG TABLET (FP) PO SCH (22:13)
[2019-12-02] MEDS: ATORVASTATIN CA 10 MG TABLET (FP) PO SCH (22:13)
[2019-12-02] MEDS: MELATONIN 5 MG TABLETS PO SCH (22:13)
[2019-12-02] MEDS: HALOPERIDOL 5 MG TABLET PO SCH (22:13)
[2019-12-02] MEDS: BENZTROPINE MESYLATE 1 MG TABLET PO SCH (22:13)
[2019-12-03] MEDS ORDERED: chlordiazePOXIDE HCL 10 MG CAPSULE PO ONE (05:00)
[2019-12-03] MEDS: hydrOXYzine PAMOATE 25 MG CAPSULE (FP) PO SCH ×2 (05:33→10:17)
[2019-12-03] MEDS: metFORMIN HCL 500 MG TABLET (FP) PO SCH (06:29)
[2019-12-03] MEDS: BACITRACIN 0.9 GM PACKET TP SCH ×2 (10:17)
[2019-12-03] MEDS: ABACAVIR/DOLUTEGRAVIR/LAMIVUDI (TRIUMEQ) TABLET -NF PO SCH (10:17)
[2019-12-03] MEDS: PRENATAL VITAMINS W/ FOLIC ACID TABLET (FP) PO SCH (10:17)
[2019-12-03] MEDS: ASPIRIN 81 MG CHEWABLE TABLETS PO SCH (10:17)
[2019-12-03 10:33] VITALS: BP 147/82; PULSE 80; TEMP 97.3
--- NOTE | 2019-12-03 11:21 | DS ---
[facility] Detox Discharge Summary Admission Date: 11/28/19 Discharge Date: 12/03/19 - History Present History: Alcohol Dependence, Cocaine Dependence Additional Comments: Pt is medically cleared and discharged to [facility] for continued management. Pt is encouraged to follow through with the rehab protocol which he verbalized understanding. Pt is AOX3, in no acute respiratory distress, Full ROM, and ambulatory. Pertinent Past History: h/o DM, HTN, alcohol, HIV+, alcohol, and cocaine. - Physical Exam Results Vital Signs: Vital Signs Temperature 97.3 F L 12/03/19 09:02 Pulse Rate 80 12/03/19 09:02 Respiratory Rate 18 12/03/19 09:02 Blood Pressure 147/82 12/03/19 09:02 O2 Sat by Pulse Oximetry (%) 99 12/03/19 06:12 Vital Signs 12/03/19 12/03/19 06:12 09:02 Temperature 97.7 F 97.3 F L Pulse Rate 68 80 Respiratory 18 18 Rate Blood Pressure 128/76 147/82 O2 Sat by Pulse 99 Oximetry (%) Laboratory Last Values WBC 4.8 K/mm3 (4.0-10.0) 11/28/19 10:15 RBC 5.65 M/mm3 (4.00-5.60) H 11/28/19 10:15 Hgb 12.5 GM/dL (11.7-16.9) 11/28/19 10:15 Hct 39.3 % (35.4-49) 11/28/19 10:15 MCV 69.6 fl (80-96) L 11/28/19 10:15 MCH 22.1 pg (25.7-33.7) L 11/28/19 10:15 MCHC 31.7 g/dl (32.0-35.9) L 11/28/19 10:15 RDW 16.7 % (11.9-15.9) H 11/28/19 10:15 Plt Count 127 K/MM3 (134-434) L 11/28/19 10:15 MPV 9.8 fl (7.5-11.1) 11/28/19 10:15 Sodium 138 mmol/L (136-145) 11/28/19 10:15 Potassium 4.4 mmol/L (3.5-5.1) 11/28/19 10:15 Chloride 106 mmol/L (98-107) 11/28/19 10:15 Carbon Dioxide 28 mmol/L (21-32) 11/28/19 10:15 Anion Gap 5 MMOL/L (8-16) L 11/28/19 10:15 BUN 18.4 mg/dL (7-18) H 11/28/19 10:15 Creatinine 1.2 mg/dL (0.55-1.3) 11/28/19 10:15 Est GFR (CKD-EPI)AfAm 78.43 11/28/19 10:15 Est GFR (CKD-EPI)NonAf 67.67 11/28/19 10:15 POC Glucometer 253 UNITS (80-120) 12/03/19 05:32 Random Glucose 170 mg/dL (74-106) H 11/28/19 10:15 Calcium 9.1 mg/dL (8.5-10.1) 11/28/19 10:15 Total Bilirubin 0.2 mg/dL (0.2-1) 11/28/19 10:15 AST 23 U/L (15-37) 11/28/19 10:15 ALT 29 U/L (13-61) 11/28/19 10:15 Alkaline Phosphatase 85 U/L (45-117) 11/28/19 10:15 Total Protein 8.3 g/dl (6.4-8.2) H 11/28/19 10:15 Albumin 3.5 g/dl (3.4-5.0) 11/28/19 10:15 Syphilis Serology Non-reactive (NONREACTIVE) 11/28/19 10:15 COVID-19 (IVONNE) Not detected (Not Detected) 11/28/19 11:40 Labs noted. Pertinent Admission Physical Exam Findings: withdrawal symptoms. - Treatment Hospital Course: Detox Protocol Followed, Detoxed Safely, Responded well, Discharged Condition Good, Rehab Referral Accepted Patient has Accepted a Rehab Referral to: [facility] - Medication Discharge Medications: Ambulatory Orders Abacavir/Dolutegravir/Lamivudi [Triumeq Tablet] 1 each PO DAILY 03/30/18 Benztropine Mesylate [Cogentin -] 0.5 mg PO DAILY 03/30/18 Haloperidol [Haldol -] 5 mg PO DAILY 03/30/18 Simvastatin [Zocor] 10 mg PO HS 03/30/18 Aspirin [ASA -] 81 mg PO DAILY #14 tab.chew 04/08/18 Metformin HCl [Glucophage] 500 mg PO BID #60 tablet 04/08/18 - Diagnosis (1) Alcohol dependence with uncomplicated withdrawal Status: Acute (2) Cocaine dependence Status: Chronic (3) Diabetes 1.5, managed as type 2 Status: Chronic (4) HIV positive Status: Chronic (5) HLD (hyperlipidemia) Status: Chronic Qualifiers: Hyperlipidemia type: unspecified Qualified Code(s): E78.5 - Hyperlipidemia, unspecified (6) HTN (hypertension) Status: Chronic Qualifiers: Hypertension type: unspecified Qualified Code(s): I10 - Essential (primary) hypertension (7) Nicotine dependence Status: Chronic Qualifiers: Nicotine product type: cigarettes Substance use status: uncomplicated Qualified Code(s): F17.210 - Nicotine dependence, cigarettes, uncomplicated - AMA Did Patient Leave Against Medical Advice: No
[2019-12-03] MEDS ORDERED: ATORVASTATIN CA 10 MG TABLET (FP) ONE (23:38)
[2019-12-03] MEDS ORDERED: BACITRACIN 0.9 GM PACKET ONE (23:38)
[2019-12-03] MEDS ORDERED: metFORMIN HCL 500 MG TABLET (FP) ONE (23:38)
[2019-12-03] MEDS ORDERED: MELATONIN 5 MG TABLETS ONE (23:39)
[2019-12-03] MEDS ORDERED: THIAMINE HCL 100 MG TABLET (FP) ONE (23:39)
[2019-12-04] MEDS ORDERED: PRENATAL VITAMINS W/ FOLIC ACID TABLET (FP) PO ONE (09:16)
[2019-12-04] MEDS ORDERED: metFORMIN HCL 500 MG TABLET (FP) ONE (09:16)
[2019-12-04] MEDS ORDERED: ASPIRIN 81 MG CHEWABLE TABLETS ONE (09:16)
[2019-12-04] MEDS ORDERED: NICOTINE 7 MG/24 HOURS TOPICAL PATCH TD ONE (09:16)
== END 2019-12-03 13:15 | disposition other institution (70) | DRG 774 ==
LOC: YASAS 09:45 → Y3N 11:25
PROVIDERS: ADMIT Allergy & Immunology; ATTEND Allergy & Immunology
PROC: HZ2ZZZZ Detoxification Services for Substance Abuse Treatment (ICD-10-PCS; principal; 2019-11-28)
DX: F10.230 Alcohol dependence with withdrawal, uncomplicated (principal); F14.20 Cocaine dependence, uncomplicated; F17.210 Nicotine dependence, cigarettes, uncomplicated; F20.9 Schizophrenia, unspecified; F19.24 Other psychoactive substance dependence with psychoactive substance-induced mood disorder; Z21 Asymptomatic human immunodeficiency virus [HIV] infection status; I10 Essential (primary) hypertension; E78.5 Hyperlipidemia, unspecified; E11.9 Type 2 diabetes mellitus without complications; Z79.84 Long term (current) use of oral hypoglycemic drugs; R01.1 Cardiac murmur, unspecified; Z56.0 Unemployment, unspecified; Z59.0 Homelessness; Z91.19 Patient's noncompliance with other medical treatment and regimen
CPT/HCPCS: 36415; 71046-TC-FY; 80053; 82962; 85027; 86780; U0003

== ENCOUNTER 2019-12-03 13:28 | Inpatient (IN) | payer OTHER ==
--- OUTSIDE RECORDS SUMMARY | 2019-12-03 13:32 | XMS ---
:1965 Author Organization [facility] Care Team Providers Name Role Phone [...] is protected by Article 27-F of the [facility] Public Health law. If you continue you may haveaccess to information: Regarding HIV / AIDS; Provided by facilities licensed or operated by the [facility] Office of Mental Health; or Provided by the [facility] Office for People With Developmental Disabilities. If such information is present, then the following [facility] mandated warning applies: This information has [...] law may result in a fine or snf sentence or both. A general authorization for the release of medical or other information is NOT sufficient authorization for further disclosure. Encounters Encounter Providers Location Date Indications Data Source(s ) Inpatient Attender: CITLALY ST-1D [facility] : [facility] 07/21/2018 10:37:00 PM EDT Patient discharged. [facility] 10:04:00 AM EDT - [address] [place] [address] 08:58:00 AM EDT Patient discharged. Inpatient Attender: PHILLIP SUNSHINE V-3N 07/08/2018 10:50:[facility] 11:23:00 AM EDT [facility] Patient discharged. Inpatient Attender: CITLALY [facility]16[facility] - 07/08/2018 [facility] DAVIN 10:49:00 AM EDT [facility]/07/2018 12:47:00 [facility] EDT - 07/07/2018 [facility] 05:38:00 PM EDT Medications Medication Brand Start Product Dose Route Administrative Pharmacy [facility] Indications Reaction Description Data Name Date [...] to Veliz Inf ormation type veliz MEDICAID [id number] SP [id number] SELF PAY 00 Self 00 MEDICAID INP [id number] Self [id number] H REHAB SELF PAY 00 Self 00 MEDICAID INP [id number] Self [id number] H PSYCH SELF PAY 0000 Self 0000 MEDICAID INP [id number] Self [id number] H REHAB Problems, Conditions, and Diagnoses Code Display Name Description Problem Type Effective Dates Data Source(s) 296.90 UNSPECIFIED Mood disorder NOS Diagnosis 08/03/2009 [facility] EPISODIC MOOD 10:00:00 AM EDT Hospit al DISORDER Results ID Date Data Source [id number] 11/28/2019 11:40:00 AM EDT [facility] Name Value Range Interpretation Description Data Sup porting Code Source(s) Document(s ) SARS [facility] coronavirus 2 RNA This lab was ordered by [facility] ct Bill Inter and reported by [facility]. ID Date Data Source [id number] 08/23/2019 11:37:00 AM EDT [facility] Name Value Range Interpretation Description Data Sup porting Code Source(s) Document(s ) SARS [facility] CORONAVIRUS 2 RNA This lab was ordered by [facility] and reported by [facility]. Procedure Vital Signs ID Date Data Source UNK Name Value Range Interpretation Code Description Data Source(s) Diastolic blood 95 mmHg 95 mmHg [facility] Systolic blood 150 mmHg 150 mmHg [facility] Respiratory rate 18 bpm 18 bpm [facility] Heart rate 62 bpm 62 bpm [facility] Body temperature 97.2 Fahrenheit 97.2 Fahrenhei t [facility] Diastolic blood 90 mmHg 90 mmHg [facility] Systolic blood 149 mmHg 149 mmHg [facility] Respiratory rate 18 bpm 18 bpm [facility] Heart rate 69 bpm 69 bpm [facility] Body temperature 97.6 Fahrenheit 97.6 Fahrenhei t [facility] Diastolic blood 77 mmHg 77 mmHg [facility] Systolic blood 178 mmHg 178 mmHg [facility] Respiratory rate 18 bpm 18 bpm [facility] Heart rate 64 bpm 64 bpm [facility] Body temperature 97.2 Fahrenheit 97.2 Fahrenhei t [facility] Body weight 183 lbs 183 lbs [facility] Diastolic blood 83 mmHg 83 mmHg [facility] Systolic blood 152 mmHg 152 mmHg [facility] Respiratory rate 18 bpm 18 bpm [facility] Heart rate 61 bpm 61 bpm [facility] Body temperature 97.2 Fahrenheit 97.2 Fahrenhei t [facility] Diastolic blood 96 mmHg 96 mmHg [facility] Systolic blood 162 mmHg 162 mmHg [facility] Respiratory rate 18 bpm 18 bpm [facility] Heart rate 78 bpm 78 bpm [facility] Body temperature 98.4 Fahrenheit 98.4 Fahrenhei t [facility] Diastolic blood 82 mmHg 82 mmHg [facility] Systolic blood 139 mmHg 139 mmHg [facility] Respiratory rate 18 bpm 18 bpm [facility] Heart rate 57 bpm 57 bpm [facility] Body temperature 98.2 Fahrenheit 98.2 Fahrenhei t [facility] Diastolic blood 80 mmHg 80 mmHg [facility] Systolic blood 128 mmHg 128 mmHg [facility] Heart rate 61 bpm 61 bpm [facility] Diastolic blood 81 mmHg 81 mmHg [facility] Systolic blood 137 mmHg 137 mmHg [facility] Respiratory rate 18 bpm 18 bpm [facility] Heart rate 59 bpm 59 bpm [facility] Body temperature 98.1 Fahrenheit 98.1 Fahrenhei t [facility] Diastolic blood 83 mmHg 83 mmHg [facility] Systolic blood 139 mmHg 139 mmHg [facility] Respiratory rate 18 bpm 18 bpm [facility] Heart rate 62 bpm 62 bpm [facility] Body temperature 98.3 Fahrenheit 98.3 Fahrenhei t [facility] Body weight 182 lbs 182 lbs [facility] Diastolic blood 77 mmHg 77 mmHg [facility] Systolic blood 141 mmHg 141 mmHg [facility] Respiratory rate 18 bpm 18 bpm [facility] Heart rate 60 bpm 60 bpm [facility] Body temperature 98.5 Fahrenheit 98.5 [facility] Diastolic blood 86 mmHg 86 mmHg [facility] Systolic blood 152 mmHg 152 mmHg [facility] Respiratory rate 18 bpm 18 bpm [facility] Heart rate 56 bpm 56 bpm [facility] Body temperature 97.2 Fahrenheit 97.2 [facility]
--- OUTSIDE RECORDS SUMMARY | 2019-12-03 13:34 | XMS ---
:1965 Author Organization [facility] Care Team Providers Name Role Phone [...] is protected by Article 27-F of the [facility] Public Health law. If you continue you may haveaccess to information: Regarding HIV / AIDS; Provided by facilities licensed or operated by the [facility] Office of Mental Health; or Provided by the [facility] Office for People With Developmental Disabilities. If such information is present, then the following [facility] mandated warning applies: This information has [...] law may result in a fine or mcc sentence or both. A general authorization for the release of medical or other information is NOT sufficient authorization for further disclosure. Encounters Encounter Providers Location Date Indications Data Source(s ) Inpatient Attender: CITLALY ST-1D [facility] : [facility] 07/21/2018 10:37:00 PM EDT Patient discharged. Outpatient [facility] 07/16/2018 10:04:00 AM EDT - [address] [place] [address] 08:58:00 AM EDT Patient discharged. Inpatient Attender: PHILLIP SUNSHINE V-3N 07/08/2018 10:50:00 [facility] 11:23:00 AM EDT [facility] Patient discharged. Inpatient Attender: CITLALY [facility] 07/07/2018 05:16:00 [facility] - 07/08/2018 [facility] DAVIN 10:49:00 AM EDT Outpatient [facility] 07/07/2018 12:47:00 [facility] EDT - 07/07/2018 [facility] 05:38:00 PM EDT Medications Medication Brand Start Product Dose Route Administrative Pharmacy [facility] Indications Reaction Description Data Name Date Form [...] name Policy type Policy ID Covered Covered green party's Policy P jo / Coverage green party ID relationship to Veliz Inf ormation type veliz MEDICAID [id number] SP [id number] SELF PAY 00 Self 00 MEDICAID INP [id number] Self [id number] H REHAB SELF PAY 00 Self 00 MEDICAID INP [id number] Self [id number] H PSYCH SELF PAY 0000 Self 0000 MEDICAID INP [id number] Self [id number] H REHAB Problems, Conditions, and Diagnoses Code Display Name Description Problem Type Effective Dates Data Source(s) 296.90 UNSPECIFIED Mood disorder NOS Diagnosis 08/03/2009 [facility] EPISODIC MOOD 10:00:00 AM EDT Hospit al DISORDER Results ID Date Data Source [id number] 11/28/2019 11:40:00 AM EDT [facility] Name Value Range Interpretation Description Data Sup porting Code Source(s) Document(s ) SARS [facility] coronavirus 2 RNA This lab was ordered by [facility] ct [facility] and reported by [facility]. ID Date Data Source [id number] 08/23/2019 11:37:00 AM EDT [facility] Name Value Range Interpretation Description Data Sup porting Code Source(s) Document(s ) SARS [facility] CORONAVIRUS 2 RNA This lab was ordered by [facility] and reported by [facility]. Procedure Vital Signs ID Date Data Source UNK Name Value Range Interpretation Code Description Data Source(s) Diastolic blood 95 mmHg 95 mmHg [facility] Systolic blood 150 mmHg 150 mmHg [facility] Respiratory rate 18 bpm 18 bpm [facility] Heart rate 62 bpm 62 bpm [facility] Body temperature 97.2 Fahrenheit 97.2 Fahrenhei t [facility] Diastolic blood 90 mmHg 90 mmHg [facility] Systolic blood 149 mmHg 149 mmHg [facility] Respiratory rate 18 bpm 18 bpm [facility] Heart rate 69 bpm 69 bpm [facility] Body temperature 97.6 Fahrenheit 97.6 Fahrenhei t [facility] Diastolic blood 77 mmHg 77 mmHg [facility] Systolic blood 178 mmHg 178 mmHg [facility] Respiratory rate 18 bpm 18 bpm [facility] Heart rate 64 bpm 64 bpm [facility] Body temperature 97.2 Fahrenheit 97.2 Fahrenhei t [facility] Body weight 183 lbs 183 lbs [facility] Diastolic blood 83 mmHg 83 mmHg [facility] Systolic blood 152 mmHg 152 mmHg [facility] Respiratory rate 18 bpm 18 bpm [facility] Heart rate 61 bpm 61 bpm [facility] Body temperature 97.2 Fahrenheit 97.2 Fahrenhei t [facility] Diastolic blood 96 mmHg 96 mmHg [facility] Systolic blood 162 mmHg 162 mmHg [facility] Respiratory rate 18 bpm 18 bpm [facility] Heart rate 78 bpm 78 bpm [facility] Body temperature 98.4 Fahrenheit 98.4 Fahrenhei t [facility] Diastolic blood 82 mmHg 82 mmHg [facility] Systolic blood 139 mmHg 139 mmHg [facility] Respiratory rate 18 bpm 18 bpm [facility] Heart rate 57 bpm 57 bpm [facility] Body temperature 98.2 Fahrenheit 98.2 Fahrenhei t [facility] Diastolic blood 80 mmHg 80 mmHg [facility] Systolic blood 128 mmHg 128 mmHg [facility] Heart rate 61 bpm 61 bpm [facility] Diastolic blood 81 mmHg 81 mmHg [facility] Systolic blood 137 mmHg 137 mmHg [facility] Respiratory rate 18 bpm 18 bpm [facility] Heart rate 59 bpm 59 bpm [facility] Body temperature 98.1 Fahrenheit 98.1 Fahrenhei t [facility] Diastolic blood 83 mmHg 83 mmHg [facility] Systolic blood 139 mmHg 139 mmHg [facility] Respiratory rate 18 bpm 18 bpm [facility] Heart rate 62 bpm 62 bpm [facility] Body temperature 98.3 Fahrenheit 98.3 Fahrenhei t [facility] Body weight 182 lbs 182 lbs [facility] Diastolic blood 77 mmHg 77 mmHg [facility] Systolic blood 141 mmHg 141 mmHg [facility] Respiratory rate 18 bpm 18 bpm [facility] Heart rate 60 bpm 60 bpm [facility] Body temperature 98.5 Fahrenheit 98.5 [facility] Diastolic blood 86 mmHg 86 mmHg [facility] Systolic blood 152 mmHg 152 mmHg [facility] Respiratory rate 18 bpm 18 bpm [facility] Heart rate 56 bpm 56 bpm [facility] Body temperature 97.2 Fahrenheit 97.2 [facility]
--- NOTE | 2019-12-03 14:10 | HP ---
FREDDIE ALCOCER Rehab Assess/Revision - Admission History Admitted to Rehab from: [facility] [address] [place] Date of Admission to Rehab: 12/03/19 - Findings Detox History & Physical reviewed: Yes Concur with findings: Yes Inpatient Rehab Admission - Rehab Decision to Admit Inpatient rehab admission?: Yes - Initial Determination Are CD services needed?: Yes Free of communicable disease: Yes Not in need of hospitalization: Yes - Rehab Admission Criteria Previous failed treatment: Yes Poor recovery environment: Yes Comorbidities: Yes Lacks judgement: Yes Patient is meeting Inpatient Rehab admission criteria:: Yes
[2019-12-03] MEDS ORDERED: ACETAMINOPHEN 325 MG TABLET (FP) PO PRN (14:14)
[2019-12-03] MEDS ORDERED: guaiFENesin 200 MG/10 ML 10 ML UNIT-DOSE CUPS PO PRN (14:14)
[2019-12-03] MEDS ORDERED: MAGNESIUM CITRATE 300 ML BOTTLE PO PRN (14:14)
[2019-12-03] MEDS ORDERED: LOPERAMIDE HCL 2 MG CAPSULE PO PRN (14:14)
[2019-12-03] MEDS ORDERED: IBUPROFEN 400 MG TABLET (FP) PO PRN (14:14)
[2019-12-03] MEDS ORDERED: MAG HYDROX/AL HYDROX/SIMETH 30 ML UNIT-DOSE CUP PO PRN (14:14)
[2019-12-03] MEDS ORDERED: NICOTINE POLACRILEX 2 MG GUM BUC PRN (14:14)
[2019-12-03] MEDS ORDERED: MAGNESIUM HYDROX 2400MG/30ML ORAL SUSPENSION 30 ML CUP PO PRN (14:14)
[2019-12-03] MEDS ORDERED: MENTHOL/PHENOL 1 EACH UD MM PRN (14:14)
[2019-12-03] MEDS ORDERED: P-EPHED 60MG/TRIPROLIDI 2.5MG TABLET PO PRN (14:14)
[2019-12-03] MEDS: BACITRACIN 15 GM TUBE TOPICAL OINTMENT TP SCH ×2 (22:35→23:51)
[2019-12-03] MEDS: metFORMIN HCL 500 MG TABLET (FP) PO SCH ×2 (22:35→23:51)
[2019-12-03] MEDS: ATORVASTATIN CA 10 MG TABLET (FP) PO SCH ×2 (22:36→23:51)
[2019-12-03] MEDS: MELATONIN 5 MG TABLETS PO SCH ×2 (22:36→23:50)
[2019-12-03] MEDS: THIAMINE HCL 100 MG TABLET (FP) PO SCH ×2 (22:36→23:50)
[2019-12-04] MEDS: metFORMIN HCL 500 MG TABLET (FP) PO SCH ×2 (10:01→21:59)
[2019-12-04] MEDS: PRENATAL VITAMINS W/ FOLIC ACID TABLET (FP) PO SCH (10:01)
[2019-12-04] MEDS: ASPIRIN 81 MG CHEWABLE TABLETS PO SCH (10:01)
[2019-12-04] MEDS: BACITRACIN 15 GM TUBE TOPICAL OINTMENT TP SCH ×2 (10:02→21:59)
[2019-12-04] MEDS: ABACAVIR/DOLUTEGRAVIR/LAMIVUDI (TRIUMEQ) TABLET -NF PO SCH (10:02)
[2019-12-04] MEDS: NICOTINE 7 MG/24 HOURS TOPICAL PATCH TD SCH (10:02)
[2019-12-04] MEDS ORDERED: PNEUMOC 13-VAL CONJ-DIP CRM/PF 0.5 ML DISP.SYRIN IM ONE (12:00)
[2019-12-04] MEDS ORDERED: PNEUMOCOCCAL 23 VACCINE 0.5 ML VIAL IM ONE ×2 (12:00→13:34)
[2019-12-04] MEDS: MELATONIN 5 MG TABLETS PO SCH (21:59)
[2019-12-04] MEDS: ATORVASTATIN CA 10 MG TABLET (FP) PO SCH (21:59)
[2019-12-04] MEDS: THIAMINE HCL 100 MG TABLET (FP) PO SCH (21:59)
[2019-12-05] MEDS: metFORMIN HCL 500 MG TABLET (FP) PO SCH ×2 (09:44→17:00)
[2019-12-05] MEDS: PRENATAL VITAMINS W/ FOLIC ACID TABLET (FP) PO SCH (09:44)
[2019-12-05] MEDS: ASPIRIN 81 MG CHEWABLE TABLETS PO SCH (09:44)
[2019-12-05] MEDS: NICOTINE 7 MG/24 HOURS TOPICAL PATCH TD SCH (09:45)
[2019-12-05] MEDS: ABACAVIR/DOLUTEGRAVIR/LAMIVUDI (TRIUMEQ) TABLET -NF PO SCH (09:45)
[2019-12-05] MEDS: BACITRACIN 15 GM TUBE TOPICAL OINTMENT TP SCH ×2 (09:45→21:23)
--- NOTE | 2019-12-05 15:19 | PN ---
[facility] Progress Note Note: Pt admitted to rehab from [address] [place] [address] over the weekend. C/O old cut to bottom of right great toe. PMHx:DM, HIV+, HLD Psych Hx:Schizophrenia Vital Signs - 24 hr 12/05/19 06:19 Temperature 97.5 F L Pulse Rate 54 L Respiratory 18 Rate Blood Pressure 151/87 O2 Sat by Pulse 98 Oximetry (%) alert o x 3, but guarded nad oob ambulating with steady gait Extremities/Skin:no edema; Right great toe old wound-open; slight serous drainage. New Rehab pt Hx DM Maintain safety increase po fluids wound care as directed keflex 500 mg po Q6h x 10 days.
[2019-12-05] MEDS: CEPHALEXIN MONOHYDRATE 500 MG CAPSULE (UD) PO SCH ×2 (18:03→23:58)
[2019-12-05] MEDS: ATORVASTATIN CA 10 MG TABLET (FP) PO SCH (21:24)
[2019-12-05] MEDS: hydrOXYzine PAMOATE 25 MG CAPSULE (FP) PO PRN (21:24)
[2019-12-05] MEDS: MELATONIN 5 MG TABLETS PO SCH (21:24)
[2019-12-05] MEDS: THIAMINE HCL 100 MG TABLET (FP) PO SCH (21:24)
[2019-12-06] MEDS: CEPHALEXIN MONOHYDRATE 500 MG CAPSULE (UD) PO SCH ×5 (07:43→23:05)
[2019-12-06] MEDS: metFORMIN HCL 500 MG TABLET (FP) PO SCH ×2 (07:43→16:49)
[2019-12-06] MEDS: PRENATAL VITAMINS W/ FOLIC ACID TABLET (FP) PO SCH (10:22)
[2019-12-06] MEDS: BACITRACIN 15 GM TUBE TOPICAL OINTMENT TP SCH ×2 (10:22→21:20)
[2019-12-06] MEDS: NICOTINE 7 MG/24 HOURS TOPICAL PATCH TD SCH (10:22)
[2019-12-06] MEDS: ASPIRIN 81 MG CHEWABLE TABLETS PO SCH (10:23)
[2019-12-06] MEDS: ABACAVIR/DOLUTEGRAVIR/LAMIVUDI (TRIUMEQ) TABLET -NF PO SCH (11:30)
[2019-12-06] MEDS: MELATONIN 5 MG TABLETS PO SCH (21:21)
[2019-12-06] MEDS: ATORVASTATIN CA 10 MG TABLET (FP) PO SCH (21:21)
[2019-12-06] MEDS: THIAMINE HCL 100 MG TABLET (FP) PO SCH (21:21)
[2019-12-06] MEDS: hydrOXYzine PAMOATE 25 MG CAPSULE (FP) PO PRN (21:21)
[2019-12-07 05:54] VITALS: BP 156/86; PULSE 59; TEMP 97.5
[2019-12-07] MEDS: CEPHALEXIN MONOHYDRATE 500 MG CAPSULE (UD) PO SCH (07:00)
[2019-12-07] MEDS: metFORMIN HCL 500 MG TABLET (FP) PO SCH (07:00)
--- NOTE | 2019-12-07 09:07 | DS ---
[facility] Rehab Discharge Summary - [facility] Rehab Discharge Summary Admission Date: 12/03/19 Discharge Date: 12/07/19 - History Present History: Alcohol dependence, Cocaine dependence Pertinent Past History: HTN HLD HIV+ DM Bipolar Disorder Schizophrenia - Discharge Physical Exam Vital Signs: Vital Signs Temperature 97.5 F L 12/07/19 05:49 Pulse Rate 59 L 12/07/19 05:49 Respiratory Rate 18 12/07/19 05:49 Blood Pressure 156/86 12/07/19 05:49 O2 Sat by Pulse Oximetry (%) 97 12/07/19 05:49 Alert o x 3,denies s/h/i nad,no resp difficulty oob ambulating with steady gait Pertinent Admission Physical Exam Findings: Laboratory Tests 12/03/19 12/04/19 12/05/19 23:48 16:57 06:42 POC Glucometer 233 186 206 12/05/19 12/06/19 12/06/19 17:00 07:42 16:48 POC Glucometer 182 175 249 12/07/19 07:00 POC Glucometer 175 Pt admitted with skin problem-wound on right great toe. Started on Keflex. Rx sent to [facility] to garbage pick up man and complete at home. Extremities/Skin:no edema; Right great toe old open wound. - Treatment Discharge Condition: Discharge condition good Hospital Course: Pt is a 53 y/o male with a hx of LIZZIE admitted to rehab after detox treatment. Pt requesting an early voluntary discharge today. Pt saw counselling staff and Cd aftercare referral package given to patient to follow up with care. pt accepted CD aftercare to [facility] [place], [place]. - Medication Discharge Medications: Ambulatory Orders Benztropine Mesylate [Cogentin -] 0.5 mg PO DAILY 03/30/18 Haloperidol [Haldol -] 5 mg PO DAILY 03/30/18 Abacavir/Dolutegravir/Lamivudi [Triumeq 600-50-300 mg Tablet] 1 each PO DAILY #30 tablet 12/07/19 Aspirin [ASA -] 81 mg PO DAILY #14 tab.chew 12/07/19 Cephalexin Monohydrate [Keflex -] 500 mg PO Q6HPO #20 capsule 12/07/19 Metformin HCl [Glucophage] 500 mg PO BID #60 tablet 12/07/19 Simvastatin [Zocor -] 10 mg PO HS #30 tablet 12/07/19 - Medication-Assisted Treatment (MAT) Medication-Assisted Treatment (MAT): No - Discharge Instructions Diet, activity, other medical instructions: Diet:LUIS/NCS Activity: oob ad blair Other medical instructions:follow up with PCP for medical management of comorbid conditions. - Diagnosis (1) Alcohol use disorder Status: Chronic (2) Type 2 diabetes mellitus Status: Chronic Qualifiers: Diabetes mellitus service provider insulin use: without service provider use (3) Cocaine dependence Status: Chronic (4) HIV positive Status: Chronic (5) HLD (hyperlipidemia) Status: Chronic Qualifiers: Hyperlipidemia type: unspecified Qualified Code(s): E78.5 - Hyperlipidemia, unspecified (6) HTN (hypertension) Status: Chronic Qualifiers: Hypertension type: unspecified Qualified Code(s): I10 - Essential (primary) hypertension (7) Nicotine dependence Status: Chronic Qualifiers: Nicotine product type: cigarettes Substance use status: uncomplicated Qualified Code(s): F17.210 - Nicotine dependence, cigarettes, uncomplicated (8) Non-compliance Status: Chronic (9) Wound, open, toe Status: Acute Qualifiers: Encounter type: subsequent encounter Qualified Code(s): S91.109D - Unspecified open wound of unspecified toe(s) without damage to nail, subsequent encounter - Follow-up Referral Minutes to complete discharge: 20 - AMA Did Patient Leave Against Medical Advice: No Additional Comments: Pt declined to disclose who his PCP is. However, pt has been on medications and courtesy Rx as above electronically sent to [facility] for pt garbage pick up man after discharge. Pt instructed to follow up with primary care for management of his comorbid conditions.
== END 2019-12-07 08:53 | disposition home or self-care (01) | DRG 772 ==
LOC: YASAS 13:28 → Y5N 13:29
PROVIDERS: ADMIT Allergy & Immunology; ATTEND Allergy & Immunology
PROC: HZ42ZZZ Group Counseling for Substance Abuse Treatment, Cognitive-Behavioral (ICD-10-PCS; principal; 2019-12-03)
DX: F10.20 Alcohol dependence, uncomplicated (principal); F14.20 Cocaine dependence, uncomplicated; F17.210 Nicotine dependence, cigarettes, uncomplicated; F31.9 Bipolar disorder, unspecified; F20.9 Schizophrenia, unspecified; Z21 Asymptomatic human immunodeficiency virus [HIV] infection status; I10 Essential (primary) hypertension; E78.5 Hyperlipidemia, unspecified; E11.9 Type 2 diabetes mellitus without complications; S91.111D Laceration without foreign body of right great toe without damage to nail, subsequent encounter; X58.XXXD Exposure to other specified factors, subsequent encounter
CPT/HCPCS: 82962; 90732; G0009

== ENCOUNTER 2020-01-20 13:36 | Inpatient (IN) | payer OTHER ==
[2020-01-20 15:18] VITALS: BMI 29.5
[2020-01-20] MEDS ORDERED: MAGNESIUM HYDROX 2400MG/30ML ORAL SUSPENSION 30 ML CUP PO PRN (17:21)
[2020-01-20] MEDS ORDERED: MAGNESIUM CITRATE 300 ML BOTTLE PO PRN (17:21)
[2020-01-20] MEDS ORDERED: METHOCARBAMOL 500 MG TABLET PO PRN (17:21)
[2020-01-20] MEDS ORDERED: chlordiazePOXIDE HCL 25 MG CAPSULE PO PRN (17:21)
[2020-01-20] MEDS ORDERED: ONDANSETRON *ODT* 4 MG TABLET SL PRN (17:21)
[2020-01-20] MEDS ORDERED: MENTHOL/PHENOL 1 EACH UD MM PRN (17:21)
[2020-01-20] MEDS ORDERED: ACETAMINOPHEN 325 MG TABLET (FP) PO PRN ×2 (17:21)
[2020-01-20] MEDS ORDERED: NICOTINE POLACRILEX 2 MG GUM BUC PRN (17:21)
[2020-01-20] MEDS ORDERED: MAG HYDROX/AL HYDROX/SIMETH 30 ML UNIT-DOSE CUP PO PRN (17:21)
[2020-01-20] MEDS ORDERED: IBUPROFEN 400 MG TABLET (FP) PO PRN (17:21)
[2020-01-20] MEDS ORDERED: BISMUTH SUBSALICYLATE 524 MG/30 ML UD PO PRN (17:21)
[2020-01-20] MEDS ORDERED: chlordiazePOXIDE HCL 25 MG CAPSULE PO ONE (18:00)
[2020-01-20] MEDS: chlordiazePOXIDE HCL 25 MG CAPSULE PO SCH (23:13)
[2020-01-20] MEDS: ATORVASTATIN CA 10 MG TABLET (FP) PO SCH (23:13)
[2020-01-20] MEDS: THIAMINE HCL 100 MG TABLET (FP) PO SCH (23:13)
[2020-01-20] MEDS: MELATONIN 5 MG TABLETS PO SCH (23:26)
[2020-01-21] MEDS: chlordiazePOXIDE HCL 25 MG CAPSULE PO SCH ×4 (05:26→22:34)
[2020-01-21] MEDS: metFORMIN HCL 500 MG TABLET (FP) PO SCH ×2 (07:50→17:23)
[2020-01-21 09:43] LABS: HEMATOCRIT 37.5 % (35.4-49); HEMOGLOBIN 12.2 GM/dL (11.7-16.9); MCH 22.6 pg (25.7-33.7); MCHC 32.4 g/dl (32.0-35.9); MEAN CELL VOLUME 69.8 fl (80-96); MEAN PLT VOLUME 9.4 fl (7.5-11.1); PLATELET COUNT 126 K/MM3 (134-434); RBC 5.37 M/mm3 (4.00-5.60); RDW 17.3 % (11.9-15.9)
[2020-01-21 09:44] LABS: POTASSIUM 4.1 mmol/L (3.5-5.1)
[2020-01-21 09:48] LABS: ALBUMIN 2.9 g/dl (3.4-5.0); BLOOD UREA NITROGEN 14.1 mg/dL (7-18); CALCIUM 8.6 mg/dL (8.5-10.1)
[2020-01-21 09:52] LABS: CREATININE 1.2 mg/dL (0.55-1.3)
[2020-01-21 09:54] LABS: BILIRUBIN,TOTAL 0.3 mg/dL (0.2-1); TOT PROT 6.9 g/dl (6.4-8.2)
[2020-01-21] MEDS: PRENATAL VITAMINS W/ FOLIC ACID TABLET (FP) PO SCH (10:19)
[2020-01-21] MEDS: ASPIRIN 81 MG CHEWABLE TABLETS PO SCH (10:19)
[2020-01-21] MEDS: MELATONIN 5 MG TABLETS PO SCH (22:34)
[2020-01-21] MEDS: ATORVASTATIN CA 10 MG TABLET (FP) PO SCH (22:34)
[2020-01-21] MEDS: THIAMINE HCL 100 MG TABLET (FP) PO SCH (22:34)
[2020-01-22] MEDS ORDERED: P-EPHED 60MG/TRIPROLIDI 2.5MG TABLET PO PRN (00:07)
[2020-01-22] MEDS ORDERED: guaiFENesin 200 MG/10 ML 10 ML UNIT-DOSE CUPS PO PRN (00:07)
[2020-01-22] MEDS: chlordiazePOXIDE HCL 25 MG CAPSULE PO SCH ×2 (07:58→10:16)
[2020-01-22] MEDS: metFORMIN HCL 500 MG TABLET (FP) PO SCH (07:58)
[2020-01-22 09:25] VITALS: BP 139/69; PULSE 73; TEMP 97.5
[2020-01-22] MEDS: PRENATAL VITAMINS W/ FOLIC ACID TABLET (FP) PO SCH (10:15)
[2020-01-22] MEDS: ASPIRIN 81 MG CHEWABLE TABLETS PO SCH (10:15)
[2020-01-23] MEDS ORDERED: chlordiazePOXIDE HCL 10 MG CAPSULE PO PRN
[2020-01-23] MEDS ORDERED: chlordiazePOXIDE HCL 10 MG CAPSULE PO SCH (05:00)
[2020-01-24] MEDS ORDERED: chlordiazePOXIDE HCL 10 MG CAPSULE PO SCH (05:00)
[2020-01-25] MEDS ORDERED: chlordiazePOXIDE HCL 10 MG CAPSULE PO ONE (05:00)
== END 2020-01-22 11:21 | disposition left against medical advice (07) | DRG 770 ==
LOC: YASAS 13:36 → Y6N 17:12
PROVIDERS: ADMIT Allergy & Immunology; ATTEND Allergy & Immunology
PROC: HZ2ZZZZ Detoxification Services for Substance Abuse Treatment (ICD-10-PCS; principal; 2020-01-20)
DX: F10.230 Alcohol dependence with withdrawal, uncomplicated (principal); F14.20 Cocaine dependence, uncomplicated; F17.210 Nicotine dependence, cigarettes, uncomplicated; F20.9 Schizophrenia, unspecified; F31.9 Bipolar disorder, unspecified; Z21 Asymptomatic human immunodeficiency virus [HIV] infection status; D69.6 Thrombocytopenia, unspecified; E88.09 Other disorders of plasma-protein metabolism, not elsewhere classified; E11.9 Type 2 diabetes mellitus without complications; Z79.84 Long term (current) use of oral hypoglycemic drugs; B35.3 Tinea pedis; R76.11 Nonspecific reaction to tuberculin skin test without active tuberculosis; R01.1 Cardiac murmur, unspecified; R05 Cough; Z91.14 Patient's other noncompliance with medication regimen
CPT/HCPCS: 36415; 80053; 82962; 85027; 86780; 93005; 93010; C9803; U0003

== ENCOUNTER 2020-05-15 19:53 | Emergency (ER) | payer OTHER ==
[2020-05-15 20:09] VITALS: BP 163/99; PULSE 80; TEMP 98.5; BMI 25.7
[2020-05-15] MEDS ORDERED: ACETAMINOPHEN 325 MG TABLET (FP) PO ONE (22:15)
[2020-05-15] MEDS ORDERED: ACETAMINOPHEN 325 MG TABLET (FP) ONE (22:19)
== END 2020-05-15 23:03 | disposition home or self-care (01) ==
LOC: JER 19:53
DX: M79.605 Pain in left leg (principal); M79.604 Pain in right leg; G62.1 Alcoholic polyneuropathy
CPT/HCPCS: 93970-TC; 99284-25; C9803; U0003

== ENCOUNTER 2020-05-15 23:18 | Inpatient (IN) | payer OTHER ==
[2020-05-15 18:47] VITALS: BMI 24.0
[2020-05-16] MEDS ORDERED: guaiFENesin 200 MG/10 ML 10 ML UNIT-DOSE CUPS PO PRN (00:51)
[2020-05-16] MEDS ORDERED: LOPERAMIDE HCL 2 MG CAPSULE PO PRN (00:51)
[2020-05-16] MEDS ORDERED: MAGNESIUM CITRATE 300 ML BOTTLE PO PRN (00:51)
[2020-05-16] MEDS ORDERED: MAGNESIUM HYDROX 2400MG/30ML ORAL SUSPENSION 30 ML CUP PO PRN (00:51)
[2020-05-16] MEDS ORDERED: P-EPHED 60MG/TRIPROLIDI 2.5MG TABLET PO PRN (00:51)
[2020-05-16] MEDS ORDERED: MAG HYDROX/AL HYDROX/SIMETH 30 ML UNIT-DOSE CUP PO PRN (00:51)
[2020-05-16] MEDS: GABAPENTIN 100 MG CAPSULE PO SCH ×3 (07:06→21:45)
[2020-05-16] MEDS: metFORMIN HCL 500 MG TABLET (FP) PO SCH ×2 (07:06→17:13)
[2020-05-16] MEDS: IBUPROFEN 400 MG TABLET (FP) PO PRN ×2 (08:33→17:13)
[2020-05-16] MEDS: ABACAVIR/DOLUTEGRAVIR/LAMIVUDI (TRIUMEQ) TABLET -NF PO SCH (11:18)
[2020-05-16] MEDS: amLODIPine BESYLATE 10 MG TABLET (FP) PO SCH ×2 (11:18→12:14)
[2020-05-16] MEDS: PRENATAL VITAMINS W/ FOLIC ACID TABLET (FP) PO SCH (11:18)
[2020-05-16] MEDS: THIAMINE HCL 100 MG TABLET (FP) PO SCH (21:45)
[2020-05-16] MEDS: MELATONIN 5 MG TABLETS PO SCH (21:48)
[2020-05-17] MEDS: ACETAMINOPHEN 325 MG TABLET (FP) PO PRN (03:27)
[2020-05-17] MEDS: GABAPENTIN 100 MG CAPSULE PO SCH ×3 (07:11→21:39)
[2020-05-17] MEDS: metFORMIN HCL 500 MG TABLET (FP) PO SCH ×2 (07:12→16:52)
[2020-05-17] MEDS ORDERED: PT OWN MED DRAWER 7, Y5N ONE (09:08)
[2020-05-17] MEDS: PRENATAL VITAMINS W/ FOLIC ACID TABLET (FP) PO SCH (09:44)
[2020-05-17] MEDS: IBUPROFEN 600 MG TABLET (FP) PO PRN ×2 (09:44→19:42)
[2020-05-17] MEDS: amLODIPine BESYLATE 10 MG TABLET (FP) PO SCH (09:44)
[2020-05-17] MEDS: ABACAVIR/DOLUTEGRAVIR/LAMIVUDI (TRIUMEQ) TABLET -NF PO SCH (09:45)
[2020-05-17] MEDS: BENZTROPINE MESYLATE 1 MG TABLET PO SCH ×2 (13:03→16:53)
[2020-05-17] MEDS: HALOPERIDOL 5 MG TABLET PO SCH ×2 (13:04→16:54)
[2020-05-17] MEDS ORDERED: MASKS NR ONE (19:43)
[2020-05-17] MEDS: MELATONIN 5 MG TABLETS PO SCH (21:39)
[2020-05-17] MEDS: THIAMINE HCL 100 MG TABLET (FP) PO SCH (21:39)
[2020-05-18] MEDS: IBUPROFEN 600 MG TABLET (FP) PO PRN ×2 (04:20→12:56)
[2020-05-18] MEDS: metFORMIN HCL 500 MG TABLET (FP) PO SCH ×2 (06:07→16:41)
[2020-05-18] MEDS: GABAPENTIN 100 MG CAPSULE PO SCH ×3 (06:07→21:00)
[2020-05-18] MEDS: PRENATAL VITAMINS W/ FOLIC ACID TABLET (FP) PO SCH (09:27)
[2020-05-18] MEDS: HALOPERIDOL 5 MG TABLET PO SCH (09:27)
[2020-05-18] MEDS: ABACAVIR/DOLUTEGRAVIR/LAMIVUDI (TRIUMEQ) TABLET -NF PO SCH (09:27)
[2020-05-18] MEDS: amLODIPine BESYLATE 10 MG TABLET (FP) PO SCH (09:27)
[2020-05-18] MEDS: BENZTROPINE MESYLATE 1 MG TABLET PO SCH (09:27)
[2020-05-18 12:03] LABS: HEMATOCRIT 40.5 % (35.4-49); HEMOGLOBIN 12.9 GM/dL (11.7-16.9); MCH 22.3 pg (25.7-33.7); MCHC 31.9 g/dl (32.0-35.9); MEAN CELL VOLUME 69.8 fl (80-96); MEAN PLT VOLUME 9.4 fl (7.5-11.1); PLATELET COUNT 165 K/MM3 (134-434); RDW 17.5 % (11.9-15.9); WHITE BLOOD COUNT 4.6 K/mm3 (4.0-10.0)
[2020-05-18 12:21] LABS: POTASSIUM 4.2 mmol/L (3.5-5.1)
[2020-05-18 12:24] LABS: CALCIUM 9.1 mg/dL (8.5-10.1)
[2020-05-18 12:25] LABS: ALBUMIN 3.1 g/dl (3.4-5.0)
[2020-05-18 12:28] LABS: CREATININE 1.1 mg/dL (0.55-1.3)
[2020-05-18 12:29] LABS: BILIRUBIN,TOTAL 0.3 mg/dL (0.2-1); TOT PROT 7.6 g/dl (6.4-8.2)
[2020-05-18] MEDS ORDERED: HALOPERIDOL 5 MG TABLET PO PRN (13:08)
[2020-05-18] MEDS: ACETAMINOPHEN 325 MG TABLET (FP) PO PRN (14:57)
[2020-05-18] MEDS: THIAMINE HCL 100 MG TABLET (FP) PO SCH (21:01)
[2020-05-18] MEDS: MELATONIN 5 MG TABLETS PO SCH (21:01)
[2020-05-19] MEDS: IBUPROFEN 600 MG TABLET (FP) PO PRN ×3 (03:21→21:49)
[2020-05-19] MEDS: GABAPENTIN 100 MG CAPSULE PO SCH ×3 (06:36→21:48)
[2020-05-19] MEDS: metFORMIN HCL 500 MG TABLET (FP) PO SCH ×2 (06:36→16:54)
[2020-05-19] MEDS: HALOPERIDOL 5 MG TABLET PO SCH (09:52)
[2020-05-19] MEDS: BENZTROPINE MESYLATE 1 MG TABLET PO SCH (09:52)
[2020-05-19] MEDS: PRENATAL VITAMINS W/ FOLIC ACID TABLET (FP) PO SCH (09:52)
[2020-05-19] MEDS: ABACAVIR/DOLUTEGRAVIR/LAMIVUDI (TRIUMEQ) TABLET -NF PO SCH (09:53)
[2020-05-19] MEDS: amLODIPine BESYLATE 10 MG TABLET (FP) PO SCH (09:54)
[2020-05-19 15:16] LABS: URINE APPEARANCE CLEAR; URINE BILIRUBIN NEGATIVE (NEGATIVE); URINE COLOR YELLOW; URINE GLUCOSE (UA) NEGATIVE (NEGATIVE); URINE KETONE NEGATIVE (NEGATIVE); URINE LEUK ESTERASE NEGATIVE (NEGATIVE); URINE NITRITE NEGATIVE (NEGATIVE); URINE PROTEIN NEGATIVE (NEGATIVE); URINE UROBILINOGEN 0.2 mg/dL (0.2-1.0)
[2020-05-19] MEDS: THIAMINE HCL 100 MG TABLET (FP) PO SCH (21:46)
[2020-05-19] MEDS: MELATONIN 5 MG TABLETS PO SCH (21:46)
[2020-05-19] MEDS: BENZTROPINE MESYLATE 1 MG TABLET PO PRN (21:47)
[2020-05-19] MEDS: hydrOXYzine PAMOATE 25 MG CAPSULE (FP) PO PRN (21:48)
[2020-05-20] MEDS: metFORMIN HCL 500 MG TABLET (FP) PO SCH ×2 (06:07→17:01)
[2020-05-20] MEDS: GABAPENTIN 100 MG CAPSULE PO SCH ×3 (06:07→21:25)
[2020-05-20] MEDS: BENZTROPINE MESYLATE 1 MG TABLET PO PRN (09:49)
[2020-05-20] MEDS: ABACAVIR/DOLUTEGRAVIR/LAMIVUDI (TRIUMEQ) TABLET -NF PO SCH (09:49)
[2020-05-20] MEDS: HALOPERIDOL 5 MG TABLET PO SCH (09:50)
[2020-05-20] MEDS: amLODIPine BESYLATE 10 MG TABLET (FP) PO SCH (09:50)
[2020-05-20] MEDS: BENZTROPINE MESYLATE 1 MG TABLET PO SCH (09:51)
[2020-05-20] MEDS: PRENATAL VITAMINS W/ FOLIC ACID TABLET (FP) PO SCH (09:51)
[2020-05-20] MEDS: IBUPROFEN 600 MG TABLET (FP) PO PRN ×2 (09:52→17:03)
[2020-05-20] MEDS ORDERED: MASKS NR ONE (19:51)
[2020-05-20] MEDS: hydrOXYzine PAMOATE 25 MG CAPSULE (FP) PO PRN (21:25)
[2020-05-20] MEDS: MELATONIN 5 MG TABLETS PO SCH (21:25)
[2020-05-20] MEDS: THIAMINE HCL 100 MG TABLET (FP) PO SCH (21:25)
[2020-05-21] MEDS: IBUPROFEN 600 MG TABLET (FP) PO PRN ×2 (04:01→11:35)
[2020-05-21] MEDS: metFORMIN HCL 500 MG TABLET (FP) PO SCH ×2 (06:50→16:42)
[2020-05-21] MEDS: GABAPENTIN 100 MG CAPSULE PO SCH ×3 (06:50→21:40)
[2020-05-21 06:59] VITALS: TEMP 97.1
[2020-05-21] MEDS: ABACAVIR/DOLUTEGRAVIR/LAMIVUDI (TRIUMEQ) TABLET -NF PO SCH (09:50)
[2020-05-21] MEDS: BENZTROPINE MESYLATE 1 MG TABLET PO SCH (09:55)
[2020-05-21] MEDS: HALOPERIDOL 5 MG TABLET PO SCH (09:55)
[2020-05-21] MEDS: PRENATAL VITAMINS W/ FOLIC ACID TABLET (FP) PO SCH (09:55)
[2020-05-21] MEDS: amLODIPine BESYLATE 10 MG TABLET (FP) PO SCH (09:55)
[2020-05-21] MEDS: ACETAMINOPHEN 325 MG TABLET (FP) PO PRN ×2 (19:59→23:33)
[2020-05-21 20:28] VITALS: BP 163/91; PULSE 72
[2020-05-21] MEDS: THIAMINE HCL 100 MG TABLET (FP) PO SCH (21:40)
[2020-05-21] MEDS: MELATONIN 5 MG TABLETS PO SCH (22:33)
[2020-05-22] MEDS: metFORMIN HCL 500 MG TABLET (FP) PO SCH (07:05)
[2020-05-22] MEDS: GABAPENTIN 100 MG CAPSULE PO SCH (07:05)
== END 2020-05-22 05:40 | disposition left against medical advice (07) | DRG 770 ==
LOC: YASAS 23:18 → Y5N 05-16 00:51
PROVIDERS: ADMIT Allergy & Immunology; ATTEND Allergy & Immunology
PROC: HZ42ZZZ Group Counseling for Substance Abuse Treatment, Cognitive-Behavioral (ICD-10-PCS; principal; 2020-05-16)
DX: F10.20 Alcohol dependence, uncomplicated (principal); F14.20 Cocaine dependence, uncomplicated; F16.20 Hallucinogen dependence, uncomplicated; F31.9 Bipolar disorder, unspecified; F20.9 Schizophrenia, unspecified; F19.24 Other psychoactive substance dependence with psychoactive substance-induced mood disorder; Z21 Asymptomatic human immunodeficiency virus [HIV] infection status; G62.9 Polyneuropathy, unspecified; E78.5 Hyperlipidemia, unspecified; E11.9 Type 2 diabetes mellitus without complications; Z79.84 Long term (current) use of oral hypoglycemic drugs; I10 Essential (primary) hypertension; M79.604 Pain in right leg; M79.605 Pain in left leg; B35.3 Tinea pedis; R76.11 Nonspecific reaction to tuberculin skin test without active tuberculosis; Z91.19 Patient's noncompliance with other medical treatment and regimen
CPT/HCPCS: 36415; 80053; 81003; 82962; 85027; C9803; U0003

== ENCOUNTER 2020-07-18 15:11 | Inpatient (IN) | payer OTHER ==
[2020-07-18 16:49] VITALS: BMI 28.8
[2020-07-18] MEDS ORDERED: chlordiazePOXIDE HCL 25 MG CAPSULE PO PRN (18:07)
[2020-07-18] MEDS ORDERED: MAG HYDROX/AL HYDROX/SIMETH 30 ML UNIT-DOSE CUP PO PRN (18:07)
[2020-07-18] MEDS ORDERED: MAGNESIUM HYDROX 2400MG/30ML ORAL SUSPENSION 30 ML CUP PO PRN (18:07)
[2020-07-18] MEDS ORDERED: ACETAMINOPHEN 325 MG TABLET (FP) PO PRN ×2 (18:07)
[2020-07-18] MEDS ORDERED: chlordiazePOXIDE HCL 25 MG CAPSULE PO ONE (18:07)
[2020-07-18] MEDS ORDERED: BISMUTH SUBSALICYLATE 524 MG/30 ML PO PRN (18:07)
[2020-07-18] MEDS ORDERED: MENTHOL/PHENOL 1 EACH UD MM PRN (18:07)
[2020-07-18] MEDS ORDERED: METHOCARBAMOL 500 MG TABLET PO PRN (18:07)
[2020-07-18] MEDS ORDERED: MAGNESIUM CITRATE 300 ML BOTTLE PO PRN (18:07)
[2020-07-18] MEDS ORDERED: ONDANSETRON *ODT* 4 MG TABLET SL PRN (18:07)
[2020-07-18] MEDS: hydrOXYzine PAMOATE 25 MG CAPSULE (FP) PO SCH (22:29)
[2020-07-18] MEDS: THIAMINE HCL 100 MG TABLET (FP) PO SCH (22:29)
[2020-07-18] MEDS: chlordiazePOXIDE HCL 25 MG CAPSULE PO SCH (22:30)
[2020-07-18] MEDS: MELATONIN 5 MG TABLETS PO SCH (22:34)
[2020-07-18] MEDS: CLOTRIMAZOLE 1% CREAM 15 GM TUBE TP SCH (23:15)
[2020-07-19] MEDS: metFORMIN HCL 500 MG TABLET (FP) PO SCH ×2 (06:10→17:15)
[2020-07-19] MEDS: hydrOXYzine PAMOATE 25 MG CAPSULE (FP) PO SCH ×5 (06:10→22:51)
[2020-07-19] MEDS: chlordiazePOXIDE HCL 25 MG CAPSULE PO SCH ×4 (06:10→22:50)
[2020-07-19] MEDS: INSULIN SLIDING SCALE (NOVOLOG) 1 VIAL SQ SCH ×4 (08:09→22:54)
[2020-07-19 10:01] LABS: BLOOD UREA NITROGEN 13.2 mg/dL (7-18); CALCIUM 8.8 mg/dL (8.5-10.1)
[2020-07-19 10:02] LABS: ALBUMIN 3.2 g/dl (3.4-5.0)
[2020-07-19 10:04] LABS: HEMATOCRIT 39.6 % (35.4-49); MCH 22.5 pg (25.7-33.7); MCHC 32.8 g/dl (32.0-35.9); MEAN CELL VOLUME 68.6 fl (80-96); MEAN PLT VOLUME 9.4 fl (7.5-11.1); PLATELET COUNT 139 K/MM3 (134-434); RBC 5.78 M/mm3 (4.00-5.60); RDW 17.3 % (11.9-15.9); WHITE BLOOD COUNT 3.9 K/mm3 (4.0-10.0)
[2020-07-19 10:07] LABS: BILIRUBIN,TOTAL 0.3 mg/dL (0.2-1); TOT PROT 7.7 g/dl (6.4-8.2)
[2020-07-19] MEDS: SULFAMETHOXAZOLE/TRIMETHOPRIM 800MG/160MG D.S. TABLET PO SCH (11:10)
[2020-07-19] MEDS: CLOTRIMAZOLE 1% CREAM 15 GM TUBE TP SCH ×2 (11:10→22:53)
[2020-07-19] MEDS: PRENATAL VITAMINS W/ FOLIC ACID TABLET (FP) PO SCH (11:10)
[2020-07-19] MEDS ORDERED: INSULIN (NOVOLOG) ASPART 100 UNITS/ML 10ML VIAL ONE ×2 (11:18→17:27)
[2020-07-19] MEDS ORDERED: cloNIDine HCL 0.1 MG TABLET PO PRN (14:08)
[2020-07-19] MEDS: amLODIPine BESYLATE 10 MG TABLET (FP) PO SCH (14:29)
[2020-07-19] MEDS: PRAMOXINE HCL 1% (SARNA SENSITIVE) 222 ML BOTTLE TP SCH (15:24)
[2020-07-19] MEDS: MELATONIN 5 MG TABLETS PO SCH (22:51)
[2020-07-19] MEDS: THIAMINE HCL 100 MG TABLET (FP) PO SCH (22:54)
[2020-07-20] MEDS: chlordiazePOXIDE HCL 25 MG CAPSULE PO SCH ×4 (07:49→23:25)
[2020-07-20] MEDS: metFORMIN HCL 500 MG TABLET (FP) PO SCH ×2 (07:50→19:56)
[2020-07-20] MEDS: hydrOXYzine PAMOATE 25 MG CAPSULE (FP) PO SCH ×5 (07:50→23:24)
[2020-07-20] MEDS: INSULIN SLIDING SCALE (NOVOLOG) 1 VIAL SQ SCH ×4 (07:50→22:29)
[2020-07-20] MEDS: IBUPROFEN 400 MG TABLET (FP) PO PRN ×2 (08:25→20:17)
[2020-07-20] MEDS: PRAMOXINE HCL 1% (SARNA SENSITIVE) 222 ML BOTTLE TP SCH (10:36)
[2020-07-20] MEDS: SULFAMETHOXAZOLE/TRIMETHOPRIM 800MG/160MG D.S. TABLET PO SCH (12:42)
[2020-07-20] MEDS: CLOTRIMAZOLE 1% CREAM 15 GM TUBE TP SCH ×2 (12:42→23:30)
[2020-07-20] MEDS: PRENATAL VITAMINS W/ FOLIC ACID TABLET (FP) PO SCH (12:43)
[2020-07-20] MEDS: amLODIPine BESYLATE 10 MG TABLET (FP) PO SCH (12:43)
[2020-07-20] MEDS ORDERED: INSULIN (NOVOLOG) ASPART 100 UNITS/ML 10ML VIAL ONE (23:23)
[2020-07-20] MEDS: THIAMINE HCL 100 MG TABLET (FP) PO SCH (23:24)
[2020-07-20] MEDS: MELATONIN 5 MG TABLETS PO SCH (23:24)
[2020-07-20 23:50] VITALS: BP 130/70; PULSE 78; TEMP 97.7
[2020-07-21] MEDS ORDERED: chlordiazePOXIDE HCL 10 MG CAPSULE PO PRN
[2020-07-21] MEDS ORDERED: chlordiazePOXIDE HCL 10 MG CAPSULE PO SCH (05:00)
[2020-07-21] MEDS: hydrOXYzine PAMOATE 25 MG CAPSULE (FP) PO SCH (07:59)
[2020-07-21 08:06] LABS: SARS-CoV-2 NAA Not Detected (Not Detected)
[2020-07-22] MEDS ORDERED: chlordiazePOXIDE HCL 10 MG CAPSULE PO SCH (05:00)
[2020-07-23] MEDS ORDERED: chlordiazePOXIDE HCL 10 MG CAPSULE PO ONE (05:00)
== END 2020-07-21 06:20 | disposition left against medical advice (07) | DRG 770 ==
LOC: YASAS 15:11 → Y6N 18:26
PROVIDERS: ADMIT Allergy & Immunology; ATTEND Allergy & Immunology
PROC: HZ2ZZZZ Detoxification Services for Substance Abuse Treatment (ICD-10-PCS; principal; 2020-07-18)
DX: F10.230 Alcohol dependence with withdrawal, uncomplicated (principal); F14.20 Cocaine dependence, uncomplicated; F17.210 Nicotine dependence, cigarettes, uncomplicated; F19.21 Other psychoactive substance dependence, in remission; Z21 Asymptomatic human immunodeficiency virus [HIV] infection status; I10 Essential (primary) hypertension; E11.9 Type 2 diabetes mellitus without complications; Z79.84 Long term (current) use of oral hypoglycemic drugs; R76.11 Nonspecific reaction to tuberculin skin test without active tuberculosis; Z59.0 Homelessness
CPT/HCPCS: 36415; 80053; 82962; 85027; 86780; C9803; U0003; U0005

== ENCOUNTER 2020-08-01 11:03 | Inpatient (IN) | payer OTHER ==
[2020-08-01 14:15] VITALS: BMI 27.4
[2020-08-01] MEDS ORDERED: chlordiazePOXIDE HCL 25 MG CAPSULE PO PRN (14:28)
[2020-08-01] MEDS ORDERED: IBUPROFEN 400 MG TABLET (FP) PO PRN (14:28)
[2020-08-01] MEDS ORDERED: BISMUTH SUBSALICYLATE 524 MG/30 ML PO PRN (14:28)
[2020-08-01] MEDS ORDERED: MAGNESIUM CITRATE 300 ML BOTTLE PO PRN (14:28)
[2020-08-01] MEDS ORDERED: ACETAMINOPHEN 325 MG TABLET (FP) PO PRN ×2 (14:28)
[2020-08-01] MEDS ORDERED: MENTHOL/PHENOL 1 EACH UD MM PRN (14:28)
[2020-08-01] MEDS ORDERED: ONDANSETRON *ODT* 4 MG TABLET SL PRN (14:28)
[2020-08-01] MEDS ORDERED: METHOCARBAMOL 500 MG TABLET PO PRN (14:28)
[2020-08-01] MEDS ORDERED: NICOTINE POLACRILEX 2 MG GUM BUC PRN (14:28)
[2020-08-01] MEDS ORDERED: MAGNESIUM HYDROX 2400MG/30ML ORAL SUSPENSION 30 ML CUP PO PRN (14:28)
[2020-08-01] MEDS ORDERED: MAG HYDROX/AL HYDROX/SIMETH 30 ML UNIT-DOSE CUP PO PRN (14:28)
[2020-08-01] MEDS ORDERED: diazePAM 5 MG TABLET PO PRN (16:56)
[2020-08-01] MEDS ORDERED: chlordiazePOXIDE HCL 25 MG CAPSULE PO SCH (17:00)
[2020-08-01] MEDS: metFORMIN HCL 500 MG TABLET (FP) PO SCH (17:18)
[2020-08-01] MEDS: diazePAM 5 MG TABLET PO SCH ×2 (17:18→23:31)
[2020-08-01] MEDS: hydrOXYzine PAMOATE 25 MG CAPSULE (FP) PO SCH ×2 (17:18→23:31)
[2020-08-01] MEDS: ATORVASTATIN CA 10 MG TABLET (FP) PO SCH (23:31)
[2020-08-01] MEDS: THIAMINE HCL 100 MG TABLET (FP) PO SCH (23:31)
[2020-08-01] MEDS: MELATONIN 5 MG TABLETS PO SCH (23:31)
[2020-08-02] MEDS: diazePAM 5 MG TABLET PO SCH ×4 (07:30→22:57)
[2020-08-02] MEDS: hydrOXYzine PAMOATE 25 MG CAPSULE (FP) PO SCH ×3 (07:30→13:34)
[2020-08-02] MEDS: metFORMIN HCL 500 MG TABLET (FP) PO SCH ×2 (07:36→18:27)
[2020-08-02] MEDS: ASPIRIN 81 MG CHEWABLE TABLETS PO SCH (10:39)
[2020-08-02] MEDS: PRENATAL VITAMINS W/ FOLIC ACID TABLET (FP) PO SCH (10:39)
[2020-08-02] MEDS: amLODIPine BESYLATE 10 MG TABLET (FP) PO SCH (10:39)
[2020-08-02 11:33] LABS: BLOOD UREA NITROGEN 15.7 mg/dL (7-18); CALCIUM 9.1 mg/dL (8.5-10.1); HEMATOCRIT 37.7 % (35.4-49); HEMOGLOBIN 12.2 GM/dL (11.7-16.9); MCH 22.5 pg (25.7-33.7); MCHC 32.4 g/dl (32.0-35.9); MEAN CELL VOLUME 69.4 fl (80-96); MEAN PLT VOLUME 10.9 fl (7.5-11.1); RBC 5.43 M/mm3 (4.00-5.60); RDW 17.5 % (11.9-15.9); WHITE BLOOD COUNT 4.3 K/mm3 (4.0-10.0)
[2020-08-02 11:34] LABS: ALBUMIN 3.4 g/dl (3.4-5.0)
[2020-08-02 11:37] LABS: CREATININE 1.2 mg/dL (0.55-1.3)
[2020-08-02 11:38] LABS: BILIRUBIN,TOTAL 0.2 mg/dL (0.2-1)
[2020-08-02 12:01] LABS: PLATELET COUNT 145 K/MM3 (134-434)
[2020-08-02] MEDS ORDERED: hydrOXYzine PAMOATE 25 MG CAPSULE (FP) PO PRN (15:11)
[2020-08-02] MEDS: MELATONIN 5 MG TABLETS PO SCH (22:57)
[2020-08-02] MEDS: THIAMINE HCL 100 MG TABLET (FP) PO SCH (22:57)
[2020-08-02] MEDS: ATORVASTATIN CA 10 MG TABLET (FP) PO SCH (22:57)
[2020-08-03] MEDS ORDERED: chlordiazePOXIDE HCL 25 MG CAPSULE PO SCH (05:00)
[2020-08-03] MEDS: diazePAM 5 MG TABLET PO SCH ×3 (08:20→23:04)
[2020-08-03] MEDS: metFORMIN HCL 500 MG TABLET (FP) PO SCH ×2 (08:21→18:23)
[2020-08-03] MEDS: amLODIPine BESYLATE 10 MG TABLET (FP) PO SCH (11:05)
[2020-08-03] MEDS: PRENATAL VITAMINS W/ FOLIC ACID TABLET (FP) PO SCH (11:05)
[2020-08-03] MEDS: ASPIRIN 81 MG CHEWABLE TABLETS PO SCH (11:05)
[2020-08-03] MEDS ORDERED: HALOPERIDOL 5 MG TABLET PO PRN (12:11)
[2020-08-03] MEDS ORDERED: BENZTROPINE MESYLATE 1 MG TABLET PO PRN (12:12)
[2020-08-03] MEDS: ATORVASTATIN CA 10 MG TABLET (FP) PO SCH (23:04)
[2020-08-03] MEDS: MELATONIN 5 MG TABLETS PO SCH (23:04)
[2020-08-03] MEDS: THIAMINE HCL 100 MG TABLET (FP) PO SCH (23:04)
[2020-08-04] MEDS ORDERED: chlordiazePOXIDE HCL 10 MG CAPSULE PO PRN
[2020-08-04] MEDS ORDERED: chlordiazePOXIDE HCL 10 MG CAPSULE PO SCH (05:00)
[2020-08-04] MEDS: diazePAM 5 MG TABLET PO SCH ×2 (06:01→17:41)
[2020-08-04] MEDS: metFORMIN HCL 500 MG TABLET (FP) PO SCH ×2 (06:31→17:41)
[2020-08-04] MEDS ORDERED: INSULIN SLIDING SCALE (NOVOLOG) 1 VIAL SQ ONE ×2 (06:44)
[2020-08-04] MEDS: ASPIRIN 81 MG CHEWABLE TABLETS PO SCH (10:33)
[2020-08-04] MEDS: amLODIPine BESYLATE 10 MG TABLET (FP) PO SCH (10:33)
[2020-08-04] MEDS: PRENATAL VITAMINS W/ FOLIC ACID TABLET (FP) PO SCH (10:33)
[2020-08-04 16:07] LABS: SARS-CoV-2 NAA Not Detected (Not Detected)
[2020-08-04] MEDS: MELATONIN 5 MG TABLETS PO SCH (22:08)
[2020-08-04] MEDS: THIAMINE HCL 100 MG TABLET (FP) PO SCH (22:08)
[2020-08-04] MEDS: ATORVASTATIN CA 10 MG TABLET (FP) PO SCH (22:08)
[2020-08-05] MEDS ORDERED: chlordiazePOXIDE HCL 10 MG CAPSULE PO SCH (05:00)
[2020-08-05] MEDS ORDERED: diazePAM 5 MG TABLET PO ONE (06:00)
[2020-08-05 06:19] VITALS: BP 157/84; PULSE 65; TEMP 97.1
[2020-08-05] MEDS: metFORMIN HCL 500 MG TABLET (FP) PO SCH (06:31)
[2020-08-06] MEDS ORDERED: chlordiazePOXIDE HCL 10 MG CAPSULE PO ONE (05:00)
== END 2020-08-05 06:30 | disposition home or self-care (01) | DRG 774 ==
LOC: YASAS 11:03 → Y3N 16:27
PROVIDERS: ADMIT Allergy & Immunology; ATTEND Allergy & Immunology
PROC: HZ2ZZZZ Detoxification Services for Substance Abuse Treatment (ICD-10-PCS; principal; 2020-08-01)
DX: F10.230 Alcohol dependence with withdrawal, uncomplicated (principal); F14.20 Cocaine dependence, uncomplicated; F19.20 Other psychoactive substance dependence, uncomplicated; F17.210 Nicotine dependence, cigarettes, uncomplicated; F20.9 Schizophrenia, unspecified; F19.24 Other psychoactive substance dependence with psychoactive substance-induced mood disorder; Z21 Asymptomatic human immunodeficiency virus [HIV] infection status; I10 Essential (primary) hypertension; E78.5 Hyperlipidemia, unspecified; E11.65 Type 2 diabetes mellitus with hyperglycemia; Z79.84 Long term (current) use of oral hypoglycemic drugs; Z59.0 Homelessness
CPT/HCPCS: 36415; 80053; 82962; 85027; 86780; C9803; U0003; U0005